=== PATIENT | female | born 1980 | race Caucasian/White ===

== ENCOUNTER 2020-07-11 07:05 | Outpatient (REF) | payer OTHER, SELFPAY ==
[2020-07-11 11:13] LABS: MANUAL DIFF FLAG NO
[2020-07-11 11:22] LABS: Basophils Percent Auto 0.6 % (0-2); Eosinophils Absolute Auto 0.2 X10*3/uL (0.0-0.4); Eosinophils Percent Auto 3.1 % (0-4); Hematocrit 40.1 % (37-47); Imm Gran Abs Auto 0.02 X10*3/uL (0.00-0.03); Imm Gran Pct Auto 0.3 % (0.0-0.4); Lymphocytes Absolute Auto 2.3 X10*3/uL (1.2-4.9); Lymphocytes Percent Auto 34.2 % (20-40); Mean Corpuscular HGB Conc 32.4 g/dl (31.0-35.0); Mean Corpuscular Hemoglobin 29.1 pg (27.0-33.0); Mean Corpuscular Volume 89.9 fL (80-98); Mean Platelet Volume 9.4 fL (9.4-12.3); Monocytes Absolute Auto 0.6 X10*3/uL (0.1-1.2); Monocytes Percent Auto 8.4 % (2-11); Neutrophils Absolute Auto 3.6 X10*3/uL (2.0-8.3); Neutrophils Percent Auto 53.4 % (45-73); Platelet Count 325 X10*3/uL (160-400); Red Blood Count 4.46 X10*6/uL (4.20-5.50); Red Cell Distribution Width 12.4 % (11.0-16.0); White Blood Count 6.8 X10*3/uL (4.8-10.8)
[2020-07-11 11:57] LABS: Alanine Aminotransferase 8 U/L (0-31); Albumin Level 4.1 g/dL (3.5-5.0); Alkaline Phosphatase 61 U/L (39-117); Anion Gap 11 (12-20); Aspartate Amino Transferase 13 U/L (5-31); Blood Urea Nitrogen 15 mg/dL (9-16); Calcium 8.5 mg/dL (8.4-10.2); Carbon Dioxide 28 mmol/L (22-29); Chloride 102 mmol/L (96-108); Cholesterol 151 mg/dL; Estimated Glomerular Filt Rate > 60; Glucose Fasting 83 mg/dL (60-99); HDL Cholesterol 60 mg/dL; LDL Cholesterol Calculated 77 mg/dl; Potassium 4.1 mmol/l (3.3-5.1); Sodium 137 mmol/L (135-145); Total Protein 6.5 g/dL (6.5-8.0); Triglycerides 70 mg/dL
[2020-07-11 12:15] LABS: TSH reflex Free T4 2.37 mIU/mL (0.32-4.0)
[2020-07-11 13:32] LABS: Bilirubin Total 0.4 mg/dL (0.0-1.0)
== END 2020-07-11 07:06 | disposition home or self-care (01) ==
LOC: HO.HMGCLDS 07:05
PROVIDERS: PCP Nurse Practitioner Family; Visit Provider Nurse Practitioner Family
DX: Z00.00 Encounter for general adult medical examination without abnormal findings (principal)
CPT/HCPCS: 36415; 80053; 80061; 84443; 85025

== ENCOUNTER 2020-07-16 15:25 | Outpatient (REF) | payer OTHER, SELFPAY ==
--- NOTE | 2020-07-16 15:31 | MM_ITS ---
EXAMINATION: MM SCREENING DIGITAL BREAST TOMOSYNTHESIS, BILATERAL CLINICAL INFORMATION: Screening. Asymptomatic. Prior [id number] mammography from [place] over 5 years ago currently unavailable. Age 39. The lifetime risk of breast cancer based on the Tyrer-Cuzick Model is 13%. COMPARISON: None. TECHNIQUE: Digital breast tomosynthesis is performed in both the craniocaudal and mediolateral oblique views along with computer-aided detection (CAD). Synthesized 2D images are generated from the tomosynthesis. FINDINGS: There are scattered areas of fibroglandular density (ACR BI-RADS breast composition Category b). Breast tissue composition borders on heterogeneously dense. There is no significant mass or architectural abnormality or abnormal calcifications. The axilla and skin contours are unremarkable. MM/MM tomosynthesis screening BI IMPRESSION: No mammographic evidence of malignancy. ASSESSMENT: BI-RADS 1: Negative RECOMMENDATION: Routine annual mammography screening. This patient's information was entered into a reminder system with a target due date for their next mammogram.
== END 2020-07-16 15:26 | disposition home or self-care (01) ==
LOC: HO.MAMMO 15:25
PROVIDERS: PCP Nurse Practitioner Family; Visit Provider Nurse Practitioner Family
DX: Z12.31 Encounter for screening mammogram for malignant neoplasm of breast (principal)
CPT/HCPCS: 77063; 77067

== ENCOUNTER 2020-07-19 | Outpatient (REF) | payer OTHER, SELFPAY ==
[2020-07-25 11:18] LABS: HPV mRNA E6/E7 rflx Not Detected (Not Detected)
== END 2020-07-19 00:01 | disposition home or self-care (01) ==
LOC: HO.LNP
PROVIDERS: Visit Provider Obstetrics & Gynecology
DX: Z01.419 Encounter for gynecological examination (general) (routine) without abnormal findings (principal); N94.6 Dysmenorrhea, unspecified
CPT/HCPCS: 87491; 87591; 87624; 87625; 88142

== ENCOUNTER → 2020-07-19 09:31 | Outpatient (BNVA) | payer OTHER, SELFPAY | PROVIDERS: PCP Nurse Practitioner Family; Visit Provider Obstetrics & Gynecology | DX: Z76.89 Persons encountering health services in other specified circumstances (principal) ==

== ENCOUNTER 2020-07-24 13:58 | Outpatient (REF) | payer OTHER, SELFPAY ==
--- NOTE | 2020-07-24 14:03 | US_ITS ---
EXAMINATION: US PELVIS COMPLETE CLINICAL INFORMATION: Dysmenorrhea. History of endometriosis. COMPARISON: None TECHNIQUE: Transabdominal and transvaginal ultrasound pelvis is performed. FINDINGS: On transabdominal ultrasound the uterus is anteverted measuring 7.1 cm in length, 5.0 cm in AP and 6.4 cm in transverse dimension. The endometrial thickness is 0.54 cm. Small nabothian cysts seen in the cervix. The left ovary measures 3.4 x 2.7 x 2.7 cm and volume 13.3 mL. The right ovary has been removed. There is no adnexal mass seen. There is no free fluid in the cul-de-sac. US/US pelvic complete IMPRESSION: Unremarkable uterus. Small nabothian cysts in cervix. Unremarkable left ovary. Right ovary has been removed.
--- NOTE | 2020-07-24 14:03 | US_ITS ---
EXAMINATION: US PELVIS COMPLETE CLINICAL INFORMATION: Dysmenorrhea. History of endometriosis. COMPARISON: None TECHNIQUE: Transabdominal and transvaginal ultrasound pelvis is performed. FINDINGS: On transabdominal ultrasound the uterus is anteverted measuring 7.1 cm in length, 5.0 cm in AP and 6.4 cm in transverse dimension. The endometrial thickness is 0.54 cm. Small nabothian cysts seen in the cervix. The left ovary measures 3.4 x 2.7 x 2.7 cm and volume 13.3 mL. The right ovary has been removed. There is no adnexal mass seen. There is no free fluid in the cul-de-sac. US/US transvaginal IMPRESSION: Unremarkable uterus. Small nabothian cysts in cervix. Unremarkable left ovary. Right ovary has been removed.
== END 2020-07-24 13:59 | disposition home or self-care (01) ==
LOC: HO.HMGCX 13:58
PROVIDERS: PCP Nurse Practitioner Family; Visit Provider Nurse Practitioner Family
DX: N94.6 Dysmenorrhea, unspecified (principal)
CPT/HCPCS: 76830; 76856

== ENCOUNTER 2020-08-08 15:26 | Outpatient (REF) | payer OTHER, SELFPAY | END 2020-08-08 15:27 | disposition home or self-care (01) | LOC: HO.LAB 15:26 | PROVIDERS: Visit Provider Nurse Practitioner Family | DX: J06.9 Acute upper respiratory infection, unspecified (principal); Z20.822 Contact with and (suspected) exposure to COVID-19 | CPT/HCPCS: 36415; U0003 ==

== ENCOUNTER → 2020-08-14 12:34 | Outpatient (BNVA) | payer OTHER, SELFPAY | PROVIDERS: PCP Nurse Practitioner Family; Visit Provider Obstetrics & Gynecology | DX: N94.6 Dysmenorrhea, unspecified (principal) | CPT/HCPCS: Q3014 ==

== ENCOUNTER 2020-08-15 16:15 | Outpatient (REF) | payer OTHER, SELFPAY | END 2020-08-15 16:16 | disposition home or self-care (01) | LOC: HO.LAB 16:15 | PROVIDERS: Visit Provider Nurse Practitioner Family | DX: R06.02 Shortness of breath (principal); Z20.822 Contact with and (suspected) exposure to COVID-19 | CPT/HCPCS: 36415; U0003 ==

== ENCOUNTER 2021-01-10 16:45 | Outpatient (REF) | payer OTHER, SELFPAY | END 2021-01-10 16:46 | disposition home or self-care (01) | LOC: HO.LNP 16:45 | PROVIDERS: Visit Provider Hospitalist | DX: R06.02 Shortness of breath (principal); Z20.822 Contact with and (suspected) exposure to COVID-19 | CPT/HCPCS: U0003; U0005 ==

== ENCOUNTER 2021-01-20 08:40 | Outpatient (REF) | payer OTHER, SELFPAY ==
[2021-01-20 10:06] LABS: Hematocrit 37.6 % (37-47); Hemoglobin 12.4 g/dl (12.0-16.0); Mean Corpuscular Hemoglobin 28.6 pg (27.0-33.0); Mean Corpuscular Volume 86.6 fL (80-98); Mean Platelet Volume 9.1 fL (9.4-12.3); Platelet Count 300 X10*3/uL (160-400); Red Blood Count 4.34 X10*6/uL (4.20-5.50); Red Cell Distribution Width 12.1 % (11.0-16.0); White Blood Count 6.3 X10*3/uL (4.8-10.8)
[2021-01-20 10:47] LABS: HCG Quantitative < 2 mIU/mL; TSH reflex Free T4 1.52 uIU/mL (0.32-4.0)
[2021-01-21 03:43] LABS: CT PCR NOT DETECTED (Not Detect.); NG PCR NOT DETECTED (Not Detect.)
== END 2021-01-20 08:41 | disposition home or self-care (01) ==
LOC: HO.LAB 08:40
PROVIDERS: PCP Nurse Practitioner Family; Visit Provider Obstetrics & Gynecology
DX: Z11.3 Encounter for screening for infections with a predominantly sexual mode of transmission (principal); R10.2 Pelvic and perineal pain; N92.0 Excessive and frequent menstruation with regular cycle; N93.9 Abnormal uterine and vaginal bleeding, unspecified
CPT/HCPCS: 36415; 84443; 84702; 85027; 87491; 87591; 99212

== ENCOUNTER 2021-02-04 08:33 | Outpatient (REF) | payer BC, SELFPAY | END 2021-02-04 08:34 | disposition home or self-care (01) | LOC: HO.LAB 08:33 | PROVIDERS: PCP Nurse Practitioner Family; Visit Provider Obstetrics & Gynecology | DX: N92.0 Excessive and frequent menstruation with regular cycle (principal) | CPT/HCPCS: 58100; 88305 ==

== ENCOUNTER 2021-02-11 11:07 | Outpatient (REF) | payer BC, SELFPAY | END 2021-02-11 11:08 | disposition home or self-care (01) | LOC: HO.US 11:07 | PROVIDERS: Visit Provider Obstetrics & Gynecology | DX: Z13.89 Encounter for screening for other disorder (principal) ==

== ENCOUNTER 2021-02-18 15:27 | Outpatient (REF) | payer BC, SELFPAY ==
--- NOTE | ~2021-02-18 | US_ITS ---
EXAMINATION: US PELVIS CLINICAL INFORMATION: Abnormal uterine and vaginal bleeding COMPARISON: Ultrasound pelvis 07/24/2020 TECHNIQUE: Both transabdominal and endovaginal scanning were performed. FINDINGS: An anteverted uterus is present which measures 7.1 x 5.0 x 6.4 cm. No uterine masses are seen. The endometrium measures 0.5 cm and appears normal. Nabothian cysts are present in the cervix. The right ovary is not seen with a history of removal. The left ovary is identified measuring 3.4 x 2.7 x 2.7 cm for a volume of 13.3 mL and appears normal. Some small follicular cysts are present. US/US pelvic and transvaginal IMPRESSION: A cause for the patient's abnormal uterine bleeding is not found. Incidental note made of nabothian cyst in the cervix and some small follicular cysts in the ovary.
== END 2021-02-18 15:28 | disposition home or self-care (01) ==
LOC: HO.US 15:27
PROVIDERS: Visit Provider Obstetrics & Gynecology
DX: N93.9 Abnormal uterine and vaginal bleeding, unspecified (principal)
CPT/HCPCS: 76830; 76856

== ENCOUNTER → 2021-02-26 15:59 | Outpatient (BNVA) | payer BC, SELFPAY | PROVIDERS: PCP Nurse Practitioner Family; Visit Provider Obstetrics & Gynecology ==

== ENCOUNTER 2021-04-04 14:49 | Outpatient (REF) | payer BC, SELFPAY ==
--- NOTE | ~2021-04-04 | XR_ITS ---
EXAMINATION: XR FOOT, LEFT CLINICAL INFORMATION: Left foot pain COMPARISON: None TECHNIQUE: AP, lateral, and oblique views of the left foot. FINDINGS: There is a nondisplaced intra-articular fracture seen about the base of the fourth proximal phalanx. There is associated soft tissue swelling. No dislocation is seen. Joint spaces are maintained. XR/XR foot LT min 3V IMPRESSION: Intra-articular fracture base fourth proximal phalanx without significant displacement.
== END 2021-04-04 14:50 | disposition home or self-care (01) ==
LOC: HO.HMGCX 14:49
PROVIDERS: PCP Nurse Practitioner Family; Visit Provider Hospitalist
DX: Z13.89 Encounter for screening for other disorder (principal)
CPT/HCPCS: 73630

== ENCOUNTER 2021-05-13 11:11 | Outpatient (REF) | payer BC, SELFPAY | END 2021-05-13 11:12 | disposition home or self-care (01) | LOC: HO.HMGCLDS 11:11 | PROVIDERS: PCP Nurse Practitioner Family; Visit Provider Internal Medicine | DX: Z20.822 Contact with and (suspected) exposure to COVID-19 (principal) | CPT/HCPCS: C9803; U0003; U0005 ==

== ENCOUNTER 2021-10-23 07:55 | Outpatient (REF) | payer OTHER, SELFPAY ==
[2021-10-25 17:17] LABS: HPV mRNA E6/E7 rflx Not Detected (Not Detected)
== END 2021-10-23 07:56 | disposition home or self-care (01) ==
LOC: HO.LAB 07:55
PROVIDERS: Visit Provider Obstetrics & Gynecology
DX: Z01.419 Encounter for gynecological examination (general) (routine) without abnormal findings (principal); Z11.51 Encounter for screening for human papillomavirus (HPV)
CPT/HCPCS: 87624; 88142

== ENCOUNTER 2021-11-20 07:34 | Outpatient (REF) | payer OTHER, SELFPAY ==
--- NOTE | ~2021-11-20 | MM_ITS ---
EXAMINATION: MM SCREENING DIGITAL BREAST TOMOSYNTHESIS, BILATERAL CLINICAL INFORMATION: Screening. Asymptomatic. The lifetime risk of breast cancer based on the Tyrer-Cuzick Model is 16.1%. COMPARISON: Mammography: 07/16/2020 TECHNIQUE: Digital breast tomosynthesis is performed in both the craniocaudal and mediolateral oblique views along with computer-aided detection (CAD). Synthesized 2-D images are generated from the tomosynthesis. FINDINGS: The breasts are heterogeneously dense, which may obscure small masses (ACR BI-RADS breast composition Category c). On left breast craniocaudal view about the anterior medial aspect, there is a 7 x 6 mm circumscribed density without definite correlate on mediolateral oblique projection. Spot compression view is recommended. Within the right breast about the inferior aspect approximately 5 cm from the nipple, there is a circumscribed somewhat lobular density measuring 7 x 4 mm in size for which spot compression film is recommended. If lesions are persistent, then ultrasound could be performed at that time. MM/MM tomosynthesis screening BI IMPRESSION: Bilateral breast densities for further evaluation, as described. ASSESSMENT: BI-RADS 0: Incomplete - Need Additional Imaging Evaluation. RECOMMENDATION: 1. Additional views of the bilateral breasts. 2. Targeted ultrasound if warranted after review of the additional views. 3. Radiology department staff will contact the patient for additional imaging.
== END 2021-11-20 07:35 | disposition home or self-care (01) ==
LOC: HO.MAMMO 07:34
PROVIDERS: Visit Provider Obstetrics & Gynecology
DX: Z12.31 Encounter for screening mammogram for malignant neoplasm of breast (principal)
CPT/HCPCS: 77063; 77067

== ENCOUNTER 2021-11-25 08:23 | Outpatient (REF) | payer OTHER, SELFPAY ==
--- NOTE | ~2021-11-25 | MM_ITS ---
EXAMINATION: MM DIAGNOSTIC DIGITAL BREAST TOMOSYNTHESIS, BILATERAL US DIAGNOSTIC ULTRASOUND BREAST, RIGHT CLINICAL INFORMATION: Recall from screening for question of asymmetric density anterior left breast on CC view and circumscribed focal asymmetric density mid inferior right breast. COMPARISON: Mammography: 11/20/2021, 07/16/2020 TECHNIQUE: Digital breast tomosynthesis is performed. 2D images are generated from the tomosynthesis. The following views are obtained: Left: Spot CC, rolled CC x2; right: Spot CC, spot MLO. Ultrasound right breast is targeted to the inferior breast. Grayscale imaging and color Doppler are performed without and with harmonics. FINDINGS: There are scattered areas of fibroglandular density (ACR BI-RADS breast composition Category b). Breast tissue composition borders on heterogeneously dense. There is a fibronodular parenchymal pattern similar to prior exams. Additional views left breast show no persistent asymmetric density or interval mass or architectural abnormality. Additional views right breast confirm smooth macrolobulated subcentimeter nodule mid 6:30 o'clock position. No spiculation or associated calcification. Ultrasound right breast demonstrates 2 adjacent cysts 7:00 position 3 cm from nipple each approximately 0.5 cm. There is increased through-transmission of sound. No associated color flow or solid component. Results are discussed with the patient at time of visit. MM/MM tomosynthesis added view BI IMPRESSION: Left: -Additional views are unremarkable. No persistent asymmetric density. Right: -2 small cysts mid inferior right breast. ASSESSMENT: BI-RADS 2: Benign RECOMMENDATION: Routine annual mammography screening. This patient's information was entered into a reminder system with a target due date for their next mammogram.
== END 2021-11-25 08:24 | disposition home or self-care (01) ==
LOC: HO.MAMMO 08:23
PROVIDERS: Visit Provider Obstetrics & Gynecology
DX: R92.2 Inconclusive mammogram (principal)
CPT/HCPCS: 76642; 77062; 77066

== ENCOUNTER 2022-09-18 16:39 | Outpatient (REF) | payer OTHER, SELFPAY ==
[2022-09-18 17:34] LABS: Influenza A PCR NEGATIVE (Negative); Influenza B PCR NEGATIVE (Negative); Resp Syncy Virus RNA Qual PCR NEGATIVE (Negative); SARS COV2 PCR INHOUSE NEGATIVE (Negative)
== END 2022-09-18 16:40 | disposition home or self-care (01) ==
LOC: HO.LNP 16:39
PROVIDERS: Visit Provider Physician Assistant
DX: Z20.822 Contact with and (suspected) exposure to COVID-19 (principal); B34.9 Viral infection, unspecified
CPT/HCPCS: 0241U

== ENCOUNTER 2022-11-18 07:56 | Outpatient (REF) | payer OTHER, SELFPAY ==
[2022-11-18 15:53] LABS: CT PCR NOT DETECTED (Not Detect.); NG PCR NOT DETECTED (Not Detect.)
== END 2022-11-18 07:57 | disposition home or self-care (01) ==
LOC: HO.LNP 07:56
PROVIDERS: Visit Provider Obstetrics & Gynecology
DX: Z01.419 Encounter for gynecological examination (general) (routine) without abnormal findings (principal); N94.6 Dysmenorrhea, unspecified; Z20.2 Contact with and (suspected) exposure to infections with a predominantly sexual mode of transmission; Z32.02 Encounter for pregnancy test, result negative; Z30.430 Encounter for insertion of intrauterine contraceptive device
CPT/HCPCS: 0353U; 58300; 81025; J7298

== ENCOUNTER 2022-12-01 14:25 | Outpatient (REF) | payer OTHER, SELFPAY ==
--- NOTE | ~2022-12-01 | US_ITS ---
EXAMINATION: US PELVIS CLINICAL INFORMATION: Dysmenorrhea. COMPARISON: Ultrasound pelvis and transvaginal 02/18/2021. TECHNIQUE: Ultrasound of the pelvis is performed using both transabdominal and transvaginal transducers along with Doppler. Transvaginal imaging is performed due to inadequate visualization transabdominally. FINDINGS: UTERUS: The uterus is anteverted and measures 9.5 x 5.2 x 6.6 cm. The double wall endometrial thickness is 1.0 cm. There is an intrauterine IUD in correct position limiting evaluation of the endometrium. No visible fibroid. ADNEXA: The right ovary is not visualized. There is normal color flow to the adnexa. There is no ovarian torsion. There is no pelvic ascites or fluid collection. Right ovary is not visualized. Left ovary measures 4.9 x 3.3 x 4.5 cm and volume 38.2 mL. There is an echogenic complex cyst likely hemorrhagic. It measures 2.9 x 3.1 x 3.0 cm. There is a small amount of free fluid in the pelvis. US/US pelvic and transvaginal IMPRESSION: Complex cyst left ovary. The right ovary is not seen. There is an IUD in correct position within the endometrial canal. The IUD limits evaluation of endometrial thickness and endometrium.
== END 2022-12-01 14:26 | disposition home or self-care (01) ==
LOC: HO.HMGCX 14:25
PROVIDERS: PCP Nurse Practitioner Family; Visit Provider Obstetrics & Gynecology
DX: R10.2 Pelvic and perineal pain (principal); N83.299 Other ovarian cyst, unspecified side; N94.6 Dysmenorrhea, unspecified
CPT/HCPCS: 76830; 76856; 81025

== ENCOUNTER 2022-12-01 16:08 | Outpatient (REF) | payer OTHER, SELFPAY ==
[2022-12-01 18:35] LABS: CT PCR NOT DETECTED (Not Detect.); NG PCR NOT DETECTED (Not Detect.)
== END 2022-12-01 16:09 | disposition home or self-care (01) ==
LOC: HO.LNP 16:08
PROVIDERS: Visit Provider Obstetrics & Gynecology
DX: R10.2 Pelvic and perineal pain (principal)
CPT/HCPCS: 0353U

== ENCOUNTER → 2022-12-10 15:51 | Outpatient (BNVA) | payer OTHER, SELFPAY | PROVIDERS: PCP Nurse Practitioner Family; Visit Provider Obstetrics & Gynecology ==

== ENCOUNTER 2022-12-25 07:30 | Outpatient (REF) | payer OTHER, SELFPAY ==
--- NOTE | ~2022-12-25 | MM_ITS ---
EXAMINATION: MM SCREENING DIGITAL BREAST TOMOSYNTHESIS, BILATERAL CLINICAL INFORMATION: Screening. Asymptomatic. The lifetime risk of breast cancer based on the Tyrer-Cuzick Model is 19%. COMPARISON: Mammography: 11/25/2021, 11/20/2021, 07/16/2020 (new baseline); right breast ultrasound 11/25/2021 TECHNIQUE: Digital breast tomosynthesis is performed in both the craniocaudal and mediolateral oblique views along with computer-aided detection (CAD). Synthesized 2D images are generated from the tomosynthesis. FINDINGS: The breasts are heterogeneously dense, which may obscure small masses (ACR BI-RADS breast composition Category c). There is a fine fibronodular parenchymal pattern with scattered minor asymmetries similar to prior studies. No developing density or architectural abnormality. There are no significant masses, abnormal calcifications, or other abnormalities. The axilla and skin contours are unremarkable. No significant changes from prior exams. MM/MM tomosynthesis screening BI IMPRESSION: No mammographic evidence of malignancy. ASSESSMENT: BI-RADS 2: Benign RECOMMENDATION: Routine annual mammography screening. This patient's information was entered into a reminder system with a target due date for their next mammogram.
== END 2022-12-25 07:31 | disposition home or self-care (01) ==
LOC: HO.MAMMO 07:30
PROVIDERS: PCP Nurse Practitioner Family; Visit Provider Obstetrics & Gynecology
DX: Z12.31 Encounter for screening mammogram for malignant neoplasm of breast (principal)
CPT/HCPCS: 77063; 77067

== ENCOUNTER 2023-01-12 09:53 | Outpatient (REF) | payer OTHER, SELFPAY ==
[2023-01-12 11:26] LABS: MANUAL DIFF FLAG NO
[2023-01-12 11:33] LABS: Basophils Absolute Auto 0.1 X10*3/uL (0.0-0.2); Basophils Percent Auto 1.3 % (0-2); Eosinophils Absolute Auto 0.2 X10*3/uL (0.0-0.4); Eosinophils Percent Auto 3.8 % (0-4); Hematocrit 40.9 % (37.0-47.0); Hemoglobin 13.1 g/dl (12.0-16.0); Lymphocytes Absolute Auto 1.6 X10*3/uL (1.2-4.9); Lymphocytes Percent Auto 34.3 % (20-40); Mean Corpuscular Hemoglobin 28.2 pg (27.0-33.0); Mean Corpuscular Volume 88.1 fL (80.0-98.0); Mean Platelet Volume 9.2 fL (9.4-12.3); Monocytes Absolute Auto 0.4 X10*3/uL (0.1-1.2); Monocytes Percent Auto 8.3 % (2-11); Neutrophils Absolute Auto 2.5 x10*3/uL (2.0-8.3); Neutrophils Percent Auto 52.3 % (45-73); Platelet Count 347 X10*3/uL (160-400); Red Blood Count 4.64 X10*6/uL (4.20-5.50); Red Cell Distribution Width 12.4 % (11.0-16.0); White Blood Count 4.7 X10*3/uL (4.8-10.8)
[2023-01-12 11:54] LABS: Alanine Aminotransferase 6 U/L (0-31); Albumin Level 4.2 g/dL (3.5-5.0); Alkaline Phosphatase 49 U/L (39-117); Anion Gap 11 (12-20); Aspartate Amino Transferase 11 U/L (5-31); Bilirubin Total 0.5 mg/dL (0.0-1.0); Blood Urea Nitrogen 10 mg/dL (9-16); Calcium 9.1 mg/dL (8.4-10.2); Carbon Dioxide 27 mmol/L (22-29); Chloride 107 mmol/L (96-108); Cholesterol 156 mg/dL; Estimated Glomerular Filt Rate > 60; Glucose Fasting 80 mg/dL (60-99); HDL Cholesterol 58 mg/dL; LDL Cholesterol Calculated 84 mg/dl; Sodium 141 mmol/L (135-145); Total Protein 6.9 g/dL (6.5-8.0); Triglycerides 71 mg/dL
[2023-01-12 12:08] LABS: TSH reflex Free T4 1.27 uIU/mL (0.32-4.0)
== END 2023-01-12 09:54 | disposition home or self-care (01) ==
LOC: HO.HMGCLDS 09:53
PROVIDERS: PCP Nurse Practitioner Family; Visit Provider Nurse Practitioner Family
DX: Z00.00 Encounter for general adult medical examination without abnormal findings (principal); Z20.2 Contact with and (suspected) exposure to infections with a predominantly sexual mode of transmission
CPT/HCPCS: 36415; 80053; 80061; 84443; 85025

== ENCOUNTER 2023-02-11 09:38 | Outpatient (AMB) | payer OTHER, SELFPAY ==
--- NOTE | 2023-02-11 09:47 | A.OFFVIS_ITS ---
Intake Vital Signs 02/11/23 10:04 Height 5 ft 7 in Weight 186 lb 2 oz BMI 29.1 BP 119/66 Blood Pressure Location Lt brachial Position Sitting Pulse 56 Intake Visit Reasons: scalp lesion Intake Note: Patient is seen in office for evaluation and treatment of a scalp lesion. Patient c/o: cyst on the back of the left ear/scalp, onset for years, has increase in size, denies discharge, redness, swelling or other concerns Physical Education Aide Required: No Accompanied by: Self / Same As Patient Allergies codeine [CODEINE] Allergy (Unknown, Verified 02/11/23 09:48) HIVES ibuprofen Allergy (Unknown, Verified 02/11/23 09:48) Unknown Sulfa (Sulfonamide Antibiotics) [SULFA (SULFONAMIDE ANTIBIOTICS)] Allergy (Unknown, Verified 02/11/23 09:48) HIVES Medication List - Last Reconciled 02/11/23 by Gal Pa MD buspirone 10 mg PO TID clonazepam 0.5 mg PO DAILY PRN fluoxetine 40 mg PO DAILY loratadine (Claritin) 10 mg PO DAILY HPI HPI Comments 2 History of Present Illness Details 42-year-old female patient presenting for evaluation of a scalp lesion in the posterior right scalp. Lesion is been present for several years and has gradually increased in size. She denies any bleeding or discharge from the site. She denies a previous history of skin cancers but does have a strong family history of other types of cancer. She is requesting excision of this lesion. [facility] Medical History Anxiety Depression Endometriosis Screening for breast cancer Surgical History H/O LEEP History of cholecystectomy History of tubal ligation S/P anal fissurectomy S/P removal of right ovary Family History Maternal Aunt History of breast cancer Family/Other Ovarian cancer Sister Hodgkin lymphoma Social History Household Members: Family Housing: House Alcohol intake: current Alcohol intake frequency: holidays/special occasions only Patient Tobacco Use Status: Never used Tobacco e-Cigarette/Vaping Use: Never Used Second Hand Smoke Exposure: No Current occupational status: employed 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 occupational exposures/hazards: No Sexual orientation: Straight/Heterosexual Gender identity: Female Cognitive needs: No Hearing needs: No Vision needs: No Female Reproductive History Menstrual Age of Menarche: 10 Review of Systems Const All systems reviewed & are unremarkable except as noted in HPI and below Physical Exam Vital Signs: Last Vital Signs Pulse 56 02/11/23 10:04 BP 119/66 02/11/23 10:04 BMI result Body Mass Index 29.1 Const General: comfortable and no acute distress Nutritional Appearance: well nourished Orientation/consciousness: patient oriented x3 Limitations: no limitations HEENT Head images: 1. 6 mm brown lesion with symmetrical borders, crusted surface suggestive of a seborrheic keratosis. No ulceration or bleeding is identified. No palpable lymphadenopathy. Resp Other: Breathing comfortably on room air, no respiratory distress GI Inspection: Yes normal to inspection Skin Other: Scalp lesion as noted above Neuro General: patient oriented x3 Extrem General: Yes normal to inspection and Yes no clubbing, cyanosis or edema Assessment & Plan Assessment & Plan (1) Scalp lesion: Code(s): L98.9 - Disorder of the skin and subcutaneous tissue, unspecified (2) Family history of ovarian cancer: Code(s): Z80.41 - Family history of malignant neoplasm of ovary (3) Family history of cancer: Code(s): Z80.9 - Family history of malignant neoplasm, unspecified (4) Family hx of colon cancer: Code(s): Z80.0 - Family history of malignant neoplasm of digestive organs Plan 42-year-old female patient presenting with a gradually enlarging scalp lesion in the posterior right scalp. Lesion is approximately 6 mm in diameter and appears consistent with a seborrheic keratosis. We discussed the options of observation verses excision. As the lesion is increasing in size I recommended excision as a minor surgery under local anesthesia. After discussion of the procedure, risks, and alternatives, she consents to an excision of the posterior right sc alp lesion. Patient has a strong family history of ovarian and breast cancer and previously underwent genetic testing however the the specimen was discarded before it could be evaluated. She would be a candidate based on her family history for genetic testing. After discussion of the procedure risks and alternatives she consents to proceeding with testing. This will be performed at the time of her postoperative visit. Coding Level of Care Code New Pt Level 4 (67182) Diagnoses Scalp lesion L98.9 Family history of ovarian cancer Z80.41 Family history of cancer Z80.9 Family hx of colon cancer Z80.0
[2023-02-11 10:04] VITALS: BP 119/66; PULSE 56; BMI 29.1
== END 2023-02-11 10:05 | disposition home or self-care (01) ==
PROVIDERS: PCP Nurse Practitioner Family; Visit Provider Surgery
DX: L98.9 Disorder of the skin and subcutaneous tissue, unspecified (principal); Z80.41 Family history of malignant neoplasm of ovary; Z80.9 Family history of malignant neoplasm, unspecified; Z80.0 Family history of malignant neoplasm of digestive organs
CPT/HCPCS: 99204

== ENCOUNTER → 2023-02-11 09:38 | Outpatient (BNVA) | payer OTHER, SELFPAY | PROVIDERS: PCP Nurse Practitioner Family; Visit Provider Surgery ==

== ENCOUNTER 2023-02-16 09:17 | Outpatient (AMB) | payer OTHER, SELFPAY ==
--- NOTE | 2023-02-16 10:16 | MHC.OFFWIV ---
Intake Vital Signs 02/16/23 10:20 Height 5 ft 7 in BP 102/70 Blood Pressure Location Lt brachial Position Sitting Pulse 56 Pulse Source Pulse Oximeter Temp 97.4 F Temp Source Temporal Artery Scan Pulse Oximetry (%) 98 Oxygen Delivery Method Room Air Intake Visit Reasons: EP lip burning/swelling for1 month (lobby) Intake Note: Pt is here c/o having chapped and swollen lips for the last month. Pt states after she eats her lips get inflammed. Patient Tobacco Use Status: Never used Tobacco Allergies codeine [CODEINE] Allergy (Unknown, Verified 02/16/23 10:20) HIVES ibuprofen Allergy (Unknown, Verified 02/16/23 10:20) Unknown Sulfa (Sulfonamide Antibiotics) [SULFA (SULFONAMIDE ANTIBIOTICS)] Allergy (Unknown, Verified 02/16/23 10:20) HIVES Do you need a note to return to daycare/school/sports/work: No HPI EP lip burning/swelling for1 month (lobby) HPI Details Patient presents with pain dryness and rash on her lips x1 month. She can identify a trigger to this. She takes a daily allergy med she does have known food allergies. She has tried several [id number] chapsticks without relief including Aquaphor. She does have mild hive breakout on her face and neck as well. Denies dysphagia tongue or mouth tingling or lesions in her mouth. No cosmetic procedures or makeup recently. [facility] Medical History Anxiety Depression Endometriosis Screening for breast cancer Surgical History H/O LEEP History of cholecystectomy History of tubal ligation S/P anal fissurectomy S/P removal of right ovary Family History Maternal Aunt History of breast cancer Family/Other Ovarian cancer Sister Hodgkin lymphoma Social History Household Members: Family Housing: House Alcohol intake: current Alcohol intake frequency: holidays/special occasions only Patient Tobacco Use Status: Never used Tobacco e-Cigarette/Vaping Use: Never Used Second Hand Smoke Exposure: No Current occupational status: employed 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 occupational exposures/hazards: No Sexual orientation: Straight/Heterosexual Gender identity: Female Cognitive needs: No Hearing needs: No Vision needs: No Female Reproductive History Menstrual Age of Menarche: 10 Review of Systems Const Reports as per HPI and Reports no additional complaints ENT Reports no additional complaints and Reports as per HPI Resp Reports as per HPI and Reports no additional complaints Skin/Breast Denies lesions Physical Exam Vital Signs: Last Vital Signs Temp 97.4 F 02/16/23 10:20 Pulse 56 02/16/23 10:20 BP 102/70 02/16/23 10:20 Pulse Ox 98 02/16/23 10:20 Oxygen Delivery Method Room Air 02/16/23 10:20 Const General: cooperative, comfortable and no acute distress Orientation/consciousness: patient oriented x3 HEENT Face and sinus: No edema, No dry mucous membranes and Yes other (Scattered patches of redness on face and neck) Mouth: Normal oral and palatal mucosa present, lip normal (Mildly tapped without lesions, there is some redness extending above the to), tongue normal and oropharynx normal Resp Effort & Inspection: normal respiratory effort Auscultation: clear to auscultation bilaterally Cardio Rate: regular rate Rhythm: regular rhythm Heart sounds: S1 normal heart sound present and S2 normal heart sound present Neuro General: patient oriented x3 Assessment & Plan Assessment & Plan (1) Perioral dermatitis: Code(s): L71.0 - Perioral dermatitis Plan: Trial short course of OTC hydrocortisone ointment. Discontinue after 10 days if symptoms resolve or do not improve. Discontinue immediately if symptoms worsen. She already takes a daily allergy pill. Will set up dermatology referral. She may need future allergy referral as she has known allergies to foods already, may need additional testing. Orders: Referrals Dermatology Referral L71.0 - Perioral dermatitis Coding Level of Care Code Est Pt Level 3 (56830) Diagnoses Perioral dermatitis L71.0
[2023-02-16 10:20] VITALS: BP 102/70; PULSE 56; TEMP 36.3; O2SAT 98
== END 2023-02-16 10:54 | disposition home or self-care (01) ==
PROVIDERS: PCP Nurse Practitioner Family; Visit Provider Physician Assistant
DX: L71.0 Perioral dermatitis (principal)
CPT/HCPCS: 99213

== ENCOUNTER → 2023-02-19 12:50 | Outpatient (BNVA) | payer OTHER, SELFPAY | PROVIDERS: PCP Nurse Practitioner Family; Visit Provider Surgery ==

== ENCOUNTER 2023-02-24 14:24 | Outpatient (REF) | payer OTHER, SELFPAY ==
--- NOTE | ~2023-02-24 | US_ITS ---
EXAMINATION: US PELVIS CLINICAL INFORMATION: Follow-up ovarian cyst. COMPARISON: Previous pelvic ultrasound November 2022 TECHNIQUE: Ultrasound of the pelvis is performed using both transabdominal and transvaginal transducers along with Doppler. Transvaginal imaging is performed due to inadequate visualization transabdominally. FINDINGS: The uterus is anteverted and measures 9.3 x 4.7 x 5.6 cm in dimension. No focal uterine lesion is seen. There is an IUD in the uterus in satisfactory position. The endometrium does not appear thickened measuring 0.7 cm. There are nabothian cysts in the cervix. The right ovary is not seen and has reportedly been removed. The left ovary measures 3.9 x 2.5 x 3.3 cm. There is a 2.2 x 1.8 x 2.1 cm complex left ovarian cyst with septations and some internal echoes. This measured 2.9 x 3.1 x 3 cm on November 2022 exam and is slightly decreased in size. This also appears decreased in complexity/less echogenic and more cystic. There is no fluid in the pelvis. US/US pelvic and transvaginal IMPRESSION: Slight interval decrease in size in the complex left ovarian cyst.
== END 2023-02-24 14:25 | disposition home or self-care (01) ==
LOC: HO.HMGCX 14:24
PROVIDERS: PCP Nurse Practitioner Family; Visit Provider Obstetrics & Gynecology
DX: N83.299 Other ovarian cyst, unspecified side (principal)
CPT/HCPCS: 76830; 76856

== ENCOUNTER 2023-02-25 12:32 | Outpatient (REF) | payer OTHER, SELFPAY ==
[2023-02-25 12:43] VITALS: BP 122/73; PULSE 65; RESP 17; TEMP 36.6; O2SAT 99; BMI 29.0
--- NOTE | 2023-02-25 13:28 | W.PM.OPN ---
Operative Note Operative Note Date of Service: 02/25/23 Narrative: Preoperative diagnosis: Seborrheic keratosis posterior scalp right side Postoperative diagnosis: Same Procedure: Excision of seborrheic keratosis posterior scalp right side Surgeon: Gal Pa MD Instrument Processing Tech: None Anesthesia: Lidocaine 1% plain Indications for procedure: 42-year-old female patient presenting with a brown lesion of the posterior scalp which has gradually increased in size and occasionally bleeds. Patient is requested excision Operative findings: 1 cm lesion located in the posterior scalp with a brownish discoloration and a bumpy surface suggestive of a seborrheic keratosis Specimen: Skin lesion posterior scalp right Estimated blood loss: 2 mL Complications: None Procedure details: Patient was brought to the minor surgery suite and placed in a left lateral decubitus position. The site of surgery was confirmed by the patient behind the right ear on the scalp. After assuring informed consent the skin was prepped with Betadine and draped in a sterile fashion. Local anesthesia was infiltrated around the lesion an elliptical incision created with a scalpel. Incision was carried down into the subcutaneous tissue and around the complete skin lesion. This was passed off the table and sent to pathology for further examination. Hemostasis was assured using light pressure. Skin was then closed using interrupted 3-0 Prolene sutures. Bacitracin was then applied. The patient tolerated the procedure well. She was discharged to home in stable condition.
== END 2023-02-25 12:33 | disposition home or self-care (01) ==
LOC: HO.MS 12:32
PROVIDERS: PCP Nurse Practitioner Family; Visit Provider Surgery
PROC: (CPT 11421; principal; 2023-02-25 13:00)
DX: L82.1 Other seborrheic keratosis (principal)
CPT/HCPCS: 11421; 88304; 88305

== ENCOUNTER → 2023-02-25 12:32 | Outpatient (BNV) | payer OTHER, SELFPAY | PROVIDERS: PCP Nurse Practitioner Family; Visit Provider Surgery | DX: L82.1 Other seborrheic keratosis (principal) | CPT/HCPCS: 11421 ==

== ENCOUNTER 2023-03-03 10:23 | Outpatient (REF) | payer OTHER, SELFPAY ==
[2023-03-05 11:04] LABS: CA-125 14 U/mL (<35)
== END 2023-03-03 10:24 | disposition home or self-care (01) ==
LOC: HO.LAB 10:23
PROVIDERS: PCP Nurse Practitioner Family; Visit Provider Obstetrics & Gynecology
DX: N83.299 Other ovarian cyst, unspecified side (principal)
CPT/HCPCS: 36415; 86304

== ENCOUNTER 2023-03-03 10:23 | Outpatient (AMB) | payer OTHER, SELFPAY ==
--- NOTE | 2023-03-03 10:25 | A.OFFVIS_ITS ---
Intake Vital Signs 03/03/23 10:27 Height 5 ft 7 in Weight 184 lb BMI 28.8 BP 110/70 Intake Visit Reasons: Persistent ovarian cyst Intake Note: Ultrasound follow up Allergies codeine [CODEINE] Allergy (Unknown, Verified 03/03/23 10:27) HIVES ibuprofen Allergy (Unknown, Verified 03/03/23 10:27) Unknown Sulfa (Sulfonamide Antibiotics) [SULFA (SULFONAMIDE ANTIBIOTICS)] Allergy (Unknown, Verified 03/03/23 10:27) HIVES Is last menstrual period known: Yes Last menstrual period: 02/09/23 HPI HPI Comments History of Present Illness Details Presenting for follow-up regarding previously seen complex ovarian in 12/22. Ultrasound done in 02/21 showed the following: The uterus is anteverted and measures 9.3 x 4.7 x 5.6 cm in dimension. No focal uterine lesion is seen. There is an IUD in the uterus in satisfactory position. The endometrium does not appear thickened measuring 0.7 cm. There are nabothian cysts in the cervix. The right ovary is not seen and has reportedly been removed. The left ovary measures 3.9 x 2.5 x 3.3 cm. There is a 2.2 x 1.8 x 2.1 cm complex left ovarian cyst with septations and some internal echoes. This measured 2.9 x 3.1 x 3 cm on November 2022 exam and is slightly decreased in size. This also appears decreased in complexity/less echogenic and more cystic. There is no fluid in the pelvis. [facility] Medical History Anxiety Depression Endometriosis Screening for breast cancer Surgical History H/O LEEP History of cholecystectomy History of excision of lesion (02/25/23) History of tubal ligation S/P anal fissurectomy S/P removal of right ovary Family History Maternal Aunt History of breast cancer Family/Other Ovarian cancer Sister Hodgkin lymphoma Social History Household Members: Family Housing: House Alcohol intake: current Alcohol intake frequency: holidays/special occasions only Patient Tobacco Use Status: Never used Tobacco e-Cigarette/Vaping Use: Never Used Second Hand Smoke Exposure: No Current occupational status: employed 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 Discussed with the patient the Ultrasound findings, the main limitation of transvaginal ultrasonography alone as a diagnostic tool to distinguish benign from malignant masses relates to its lack of specificity and low positive predictive value for cancer. The differential diagnosis discussed with the patient includes the following but not limited to: benign and malignant gynecological and non-gynecological causes. Laboratory evaluation include serum tumor marker CA 125 . Discussed with the patient that CA 125 is a protein associated with epithelial ovarian malignancies, but also frequently expressed at lower levels by nonmalignant tissue. Elevation of CA 125 levels may occur in nonmalignant gynecologic conditions, and in non-gynecologic cancers, It is most useful in postmenopausal women and in identifying non mucinous epithelial cancer. Discussed with the patient options of treatment , in case CA 125 is not elevated, including laparoscopy ovarian cystectomy/oophorectomy vs. expectant management with repeat US in repeating pelvic US in 6 weeks . If the ovarian complex cyst is persistent larger and / or more complex looking, or higher CA 125 will refer to gynecologic Oncology. All pros, cons, risks and benefits of each approach were discussed with the patient including but not limited to a delay in the diagnosis and treatment of ovarian cancer affecting the prognosis; The patient decided to go ahead with expectant management. Instructions given the patient to schedule a 6 week follow-up ultrasound appointment. All questions were answered & the patient verbalized understanding and agreed with the plan. Orders: Orders CA-125 Today N83.299 - Other ovarian cyst, unspecified side US pelvic and transvaginal 6 Weeks N83.299 - Other ovarian cyst, unspecified side Coding Level of Care Code Est Pt Level 3 (11453) Diagnoses Complex ovarian cyst N83.299
[2023-03-03 10:27] VITALS: BP 110/70; BMI 28.8
== END 2023-03-03 10:55 | disposition home or self-care (01) ==
LOC: HO.HWS 10:23
PROVIDERS: PCP Nurse Practitioner Family; Visit Provider Obstetrics & Gynecology
DX: N83.299 Other ovarian cyst, unspecified side (principal)
CPT/HCPCS: 99213

== ENCOUNTER → 2023-03-09 12:48 | Outpatient (BNVA) | payer OTHER, SELFPAY | PROVIDERS: PCP Nurse Practitioner Family; Visit Provider Surgery ==

== ENCOUNTER 2023-03-16 13:34 | Outpatient (AMB) | payer OTHER, SELFPAY ==
--- NOTE | 2023-03-16 13:51 | AM.OFFWIN_ITS ---
Intake Vital Signs 03/16/23 13:55 Weight 188 lb BP 110/70 Blood Pressure Location Lt brachial Position Sitting Pulse 60 Pulse Source Pulse Oximeter Pulse Oximetry (%) 99 Oxygen Delivery Method Room Air Intake Visit Reasons: EP back pain due to Sciatic/LT Intake Note: Patient here because about 6 months ago her sciatica came back on left side, but now it has worsened where she is having difficulty walking, sitting and bending. Patient Tobacco Use Status: Never used Tobacco Allergies codeine [CODEINE] Allergy (Unknown, Verified 03/16/23 13:54) HIVES ibuprofen Allergy (Unknown, Verified 03/16/23 13:54) Unknown Sulfa (Sulfonamide Antibiotics) [SULFA (SULFONAMIDE ANTIBIOTICS)] Allergy (Unknown, Verified 03/16/23 13:54) HIVES Do you need a note to return to daycare/school/sports/work: Yes HPI EP back pain due to Sciatic/LT HPI Details 42-year-old female patient presents today for worsening lower back pain. She has had lower back pain on and off for many years, and had imaging and chiropractic treatment previously while living in [place]. About 6 months ago, she noticed her lower back pain radiating to buttocks left greater than right recurred, and has intensified significantly over the last 5 days. No significant inciting event to recurrence. Prior MRI in 2018 showed facet arthropathy, left L4/5 and left L5/S1 disc herniations. She reports that her pain is severe, and has been impacting all activity, sleep, walking. Pain is worse with any bending. Pain radiates down her buttocks, and occasionally lower down legs left greater than right. Denies any numbness or weakness of lower extremities. Denies any saddle anesthesia, fever or chills. [facility] Medical History Anxiety Depression Endometriosis Screening for breast cancer Surgical History H/O LEEP History of cholecystectomy History of excision of lesion (02/25/23) History of tubal ligation S/P anal fissurectomy S/P removal of right ovary Family History Maternal Aunt History of breast cancer Family/Other Ovarian cancer Sister Hodgkin lymphoma Social History Household Members: Family Housing: House Alcohol intake: current Alcohol intake frequency: holidays/special occasions only Patient Tobacco Use Status: Never used Tobacco e-Cigarette/Vaping Use: Never Used Second Hand Smoke Exposure: No Current occupational status: employed 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 occupational exposures/hazards: No Sexual orientation: Straight/Heterosexual Gender identity: Female Cognitive needs: No Hearing needs: No Vision needs: No Female Reproductive History Menstrual Age of Menarche: 10 Review of Systems Const All systems reviewed & are unremarkable except as noted in HPI and below Physical Exam Vital Signs: Last Vital Signs Pulse 60 03/16/23 13:55 BP 110/70 03/16/23 13:55 Pulse Ox 99 03/16/23 13:55 Oxygen Delivery Method Room Air 03/16/23 13:55 Const General: cooperative and healthy appearing (uncomfortable due to pain) Nutritional Appearance: average body habitus Resp Effort & Inspection: normal respiratory effort and able to speak in complete sentences Back/Spine/Pelvis Cervical Spine: normal cervical lordosis and cervical ROM normal Thoracic/Lumbar Spine: thoracic and lumbar spine normal to inspection, straight leg raise negative bilaterally, paraspinal muscle tenderness on the left greater than right, thoraco-lumbar ROM limited (flex/ex/lat felx b/l) and thoraco-lumbar spasm on the left greater than right Sacroiliac joints: bilaterally (L>R) tender to palpation Skin General skin exam: no rashes or lesions noted Neuro General: Normal light touch and pain sensation Extrem General: Yes capillary refill normal and Yes no clubbing, cyanosis or edema Psych Appearance: grossly normal Mental Status: mental status grossly normal Speech and movement: Normal speech and movement present Assessment & Plan Assessment & Plan (1) Low back pain radiating to lower extremity: Code(s): M54.50 - Low back pain, unspecified; M79.606 - Pain in leg, unspecified Plan: 42 year old patient with acute on chronic lower back pain. Prior MRI in 2018 (patient had results on her phone from [place] office) had concerning findings for facet arthroses and left sided disc herniations at L4/5 and L5/S1. Her pain has been worsening and making all activity painful. XR obtained today shows no acute compression fracture. Slight retrolisthesis L5-S1 with slight disc space narrowing L4-S1. Lower lumbar facet arthrosis. She cannot take prednisone or NSAIDs due to an allergy. I am going to start her on a short course of muscle relaxers and pain medication. We reviewed indications, use, possible risks/side effects of medication. I would like her to consider course of PT and/or chiropractic treatment if this flare up does not resolve with time and conservative treatment. She can continue to use heating pad, Tylenol, and do some gentle stretching at home. It may also be mullins for her to establish care with a enrichment specialist, perhaps [facility] [facility] as she may at some point need additional imaging and perhaps interventional treatment if those prior disc herniations have in fact worsened. I sent a message to her PCP to consider referral. If she does not improve of if symptoms worsen she should return to clinic or f/u with PCP. She verbalizes understanding and agrees to plan. (2) Lumbar paraspinal muscle spasm: Code(s): M62.830 - Muscle spasm of back Orders: Orders XR lumbar spine 2-3V 03/16/23 M54.50 - Low back pain, unspecified, M79.606 - Pain in leg, unspecified Medications: New cyclobenzaprine 10 mg PO BID 7 days PRN 14 tabs 0RF muscle spasm M62.830 - Muscle spasm of back oxycodone Partial Fill upon patient request. Monitor for hives reaction as discussed. 5 mg PO Q8H 4 days PRN 12 tabs 0RF pain M54.50 - Low back pain, unspecified, M79.606 - Pain in leg, unspecified Coding Level of Care Code Est Pt Level 3 (86938) Diagnoses Low back pain radiating to lower extremity M54.50; M79.606 Lumbar paraspinal muscle spasm M62.830
[2023-03-16 13:55] VITALS: BP 110/70; PULSE 60; O2SAT 99
== END 2023-03-16 14:48 | disposition home or self-care (01) ==
PROVIDERS: PCP Nurse Practitioner Family; Visit Provider Nurse Practitioner Family
DX: M54.50 Low back pain, unspecified (principal); M79.606 Pain in leg, unspecified; M62.830 Muscle spasm of back
CPT/HCPCS: 99213

== ENCOUNTER 2023-03-16 14:38 | Outpatient (REF) | payer OTHER, SELFPAY ==
--- NOTE | ~2023-03-16 | XR_ITS ---
EXAMINATION: XR LUMBOSACRAL SPINE CLINICAL INFORMATION: Low back pain, unspecified COMPARISON: None available. TECHNIQUE: Three views of the lumbosacral spine. FINDINGS: There is a slight to mild lumbar levoscoliosis. IUD is in position. There are postoperative changes in the right upper quadrant. No acute lumbar compression fractures seen. Slight retrolisthesis noted L5-S1. There is slight disc space narrowing observed L4-S1. Lower lumbar facet arthrosis noted. XR/XR lumbar spine 2-3V IMPRESSION: 1. No acute compression fracture. Slight retrolisthesis L5-S1 with slight disc space narrowing L4-S1. 2. Lower lumbar facet arthrosis.
== END 2023-03-16 14:39 | disposition home or self-care (01) ==
LOC: HO.HMGCX 14:38
PROVIDERS: Visit Provider Nurse Practitioner Family
DX: M54.50 Low back pain, unspecified (principal)
CPT/HCPCS: 72100

== ENCOUNTER 2023-04-15 16:18 | Outpatient (REF) | payer OTHER, SELFPAY ==
--- NOTE | ~2023-04-15 | US_ITS ---
EXAMINATION: US PELVIS CLINICAL INFORMATION: Ovarian cysts, last menstrual period 04/07/2023. COMPARISON: 02/24/2023. TECHNIQUE: Ultrasound of the pelvis is performed using both transabdominal and transvaginal transducers along with Doppler. Transvaginal imaging is performed due to inadequate visualization transabdominally. Limited images of the liver demonstrate diffuse increase in echogenicity which is characteristic of primary hepatocellular disease, possibly due to hepatic steatosis and further limits visualization. FINDINGS: Uterus: The uterus is anteverted and measures 8.5 x 4.8 x 5.6 cm. No discrete fibroids are identified. IUD in place within the endometrial cavity. Multiple Nabothian cysts identified. The double wall endometrial thickness is 0.8 mm. The right ovary is not visualized and is reported to be surgically absent. Left ovary measures 3.3 x 3.0 x 2.6 cm, volume 13.5 mL. The left ovary is unremarkable in appearance. The previously identified 2.2 cm complex left ovarian cyst is not visualized. No significant free fluid. US/US pelvic and transvaginal IMPRESSION: 1. Previously identified complex left ovarian cyst is not visualized. Unremarkable left ovary. 2. IUD in place within the endometrial cavity. 3. No discrete fibroids. 4. Endometrial thickness is 0.8 cm. 5. Right ovary not visualized and is reported to be surgically absent.
== END 2023-04-15 16:19 | disposition home or self-care (01) ==
LOC: HO.US 16:18
PROVIDERS: PCP Nurse Practitioner Family; Visit Provider Obstetrics & Gynecology
DX: N83.299 Other ovarian cyst, unspecified side (principal)
CPT/HCPCS: 76830; 76856

== ENCOUNTER 2023-04-23 09:30 | Outpatient (AMB) | payer OTHER, SELFPAY ==
--- NOTE | 2023-04-23 09:49 | A.OFFVIS_ITS ---
Intake Vital Signs 04/23/23 09:52 Height 5 ft 7 in Weight 187 lb BMI 29.3 BP 132/60 Blood Pressure Location Lt brachial Position Sitting Intake Visit Reasons: Genetic Results *HERE* Intake Note: Patient is seen in office genetic testing results. Patient c/o: denies any changes here for results [employer] Worker Required: No Accompanied by: Self / Same As Patient Allergies codeine [CODEINE] Allergy (Unknown, Verified 04/23/23 09:51) HIVES ibuprofen Allergy (Unknown, Verified 04/23/23 09:51) Unknown Sulfa (Sulfonamide Antibiotics) [SULFA (SULFONAMIDE ANTIBIOTICS)] Allergy (Un known, Verified 04/23/23 09:51) HIVES Medication List - Last Reconciled 04/23/23 by Gal Pa MD buspirone 10 mg PO TID clonazepam 0.5 mg PO DAILY PRN cyclobenzaprine 10 mg PO BID PRN 7 days fluoxetine 40 mg PO DAILY loratadine (Claritin) 10 mg PO DAILY HPI HPI Comments History of Present Illness Details 42-year-old female patient with a strong family history of breast cancer returning to review genetic testing. Genetic testing revealed no clinically significant mutations identified. No variance of uncertain significance (VUS) were identified. The patient's breast cancer risk score of her remaining lifetime was calculated at 21.5 %. This is above the 20% threshold placing her at high risk for breast cancer. I reviewed the recommendations for high risk breast screening including monthly self examinations, twice yearly clinical breast examination, yearly mammogram alterna ting every 6 months with yearly breast MRI. A copy of the genetic testing results were provided to the patient. COUNT INCLUDES THE [facility] Medical History Anxiety Depression Endometriosis Screening for breast cancer Surgical History History of excision of lesion (02/25/23) History of cholecystectomy History of tubal ligation H/O LEEP S/P removal of right ovary S/P anal fissurectomy Family History Maternal Aunt History of breast cancer Family/Other Ovarian cancer Sister Hodgkin lymphoma Social History Household Members: Family Housing: House Alcohol intake: current Alcohol intake frequency: holidays/special occasions only Patient Tobacco Use Status: Never used Tobacco e-Cigarette/Vaping Use: Never Used Second Hand Smoke Exposure: No Current occupational status: employed 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 occupational 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/hazards: No Sexual orientation: Straight/Heterosexual Gender identity: Female Cognitive needs: No Hearing needs: No Vision needs: No Female Reproductive History Menstrual Age of Menarche: 10 Review of Systems Const All systems reviewed & are unremarkable except as noted in HPI and below Physical Exam Vital Signs: Last Vital Signs BP 132/60 04/23/23 09:52 BMI result Body Mass Index 29.3 Const General: comfortable and no acute distress Nutritional Appearance: well nourished Orientation/consciousness: patient oriented x3 Limitations: no limitations Chest Other: Exam deferred Resp Effort & Inspection: normal respiratory effort Skin General skin exam: no rashes or lesions noted Neuro General: patient oriented x3 Extrem General: Yes no clubbing, cyanosis or edema Assessment & Plan Assessment & Plan (1) At high risk for breast cancer: Code(s): Z91.89 - Other specified personal risk factors, not elsewhere classified (2) Family history of cancer: Code(s): Z80.9 - Family history of malignant neoplasm, unspecified Plan 42-year-old female patient with strong family history of breast cancer and colon cancer. Genetic testing revealed no clinically significant mutations. No variance of unknown significance were identified as well. Her breast cancer risk score was calculated at 21.5 %. We discussed high risk for breast cancer protocol. I will order a breast MRI. She will follow-up with Dr. Adams for her breast examinations. She is welcome to call for any concerns. We also discussed colon screening. She reports that she previously underwent a colonoscopy in [place]. A baseline colonoscopy is recommended between the age of 45 and 50. Coding Level of Care Code Est Pt Level 3 (23353) Diagnoses At high risk for breast cancer Z91.89 Family history of cancer Z80.9
[2023-04-23 09:52] VITALS: BP 132/60; BMI 29.3
== END 2023-04-23 09:56 | disposition home or self-care (01) ==
PROVIDERS: PCP Nurse Practitioner Family; Visit Provider Surgery
DX: Z80.3 Family history of malignant neoplasm of breast (principal); Z91.89 Other specified personal risk factors, not elsewhere classified
CPT/HCPCS: 99213

== ENCOUNTER → 2023-04-23 09:30 | Outpatient (BNVA) | payer OTHER, SELFPAY | PROVIDERS: PCP Nurse Practitioner Family; Visit Provider Surgery ==

== ENCOUNTER 2023-04-28 07:40 | Outpatient (AMB) | payer OTHER, SELFPAY ==
--- NOTE | 2023-04-28 07:41 | A.OFFVIS_ITS ---
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 Ultrasound done recently showed the following: IMPRESSION: 1. Previously identified complex left ov alverto cyst is not visualized. Unremarkable left ovary. 2. IUD in place within the endometrial c avity. 3. No discrete fibroids. 4. Endometrial thickness is 0.8 cm. 5. Right ovary not visualized and is rep orted to be surgically absent. Last co testing was in 2021 was negative. Last EMB was in 02/21 was negative for endometrial hyperplasia or malignancy. Mirena IUD was inserted in 11/22 in since then the patient has been having persistent severe dysmenorrhea and continuous vaginal spotting and is interested in surgical options of treatment [facility] Medical History Anxiety Depression Endometriosis Screening for breast cancer Surgical History History of excision of lesion (02/25/23) History of cholecystectomy History of tubal ligation H/O LEEP S/P removal of right ovary S/P anal fissurectomy Family History Maternal Aunt History of breast cancer Family/Other Ovarian cancer Sister Hodgkin lymphoma Social History Household Members: Family Housing: House Alcohol intake: current Alcohol intake frequency: holidays/special occasions only Patient Tobacco Use Status: Never used Tobacco e-Cigarette/Vaping Use: Never Used Second Hand Smoke Exposure: No Current occupational status: employed 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 occupational exposures/hazards: No Sexual orientation: Straight/Heterosexual Gender identity: Female Cognitive needs: No Hearing needs: No Vision needs: No Female Reproductive History Menstrual Age of Menarche: 10 Date of last menstrual period: 04/08/23 Review of Systems Const All systems reviewed & are unremarkable except as noted in HPI and below Reports as per HPI and Reports no additional complaints GI Reports no additional complaints Reports no additional complaints Physical Exam Vital Signs: Last Vital Signs BP 118/70 04/28/23 07:43 BMI result Body Mass Index 29.0 Assessment & Plan Assessment & Plan (1) Complex ovarian cyst: Code(s): N83.299 - Other ovarian cyst, unspecified side Plan: Discussed with the patient ultrasound findings showing the previously identified complex cyst has resolved. The patient was instructed to call if symptoms recur. All questions were answered the patient verbalized understanding. (2) Dysmenorrhea: Comment: possible endometriosis Family history of breast cancer No improvement with Mirena IUD Code(s): N94.6 - Dysmenorrhea, unspecified Plan: Offered the patient removal of Mirena IUD, the patient would like to keep it till next step in the management. Discussed with the patient options of treatment including atrial ablation versus hysterectomy with or without BSO, the patient is interested in hysterectomy. Discussed with the patient the different types of hysterectomies including, vaginal, laparoscopic assisted vaginal, robotic assisted laparoscopic,& abdominal +/- BSO. All pros, cons, r/b of each approach were discussed the patient including evidence that morbidity is less and recovery is shorter with minimally invasive approaches to hysterectomy. Discussed with the patient the lack of availability of the robot DaVinci robot and/or minimally invasive him specialist specialist at [facility]. Will refer the patient to a tertiary care center, [facility]. Instructed the patient to call our office back in case a referral appointment is not scheduled, missed or canceled so that we will assist on rescheduling another appointment, the patient verbalized understanding agreed with the plan. (3) Abnormal liver ultrasound: Code(s): R93.2 - Abnormal findings on diagnostic imaging of liver and biliary tract Plan: Discussed with the patient the following finding on ultrasound of the pelvis: Limited images of the liver demonstrate diffuse increase in echogenicity which is characteristic of primary hepatocellular disease, possibly due to hepatic steatosis and further limits visualization. Recommended patient to call her PCP regarding further management. All questions answered, the patient verbalized understanding Coding Level of Care Code Est Pt Level 3 (73559) Diagnoses Complex ovarian cyst N83.299 Dysmenorrhea N94.6 Abnormal liver ultrasound R93.2
[2023-04-28 07:43] VITALS: BP 118/70; BMI 29.0
== END 2023-04-28 08:39 | disposition home or self-care (01) ==
PROVIDERS: PCP Nurse Practitioner Family; Visit Provider Obstetrics & Gynecology
DX: N83.299 Other ovarian cyst, unspecified side (principal); N94.6 Dysmenorrhea, unspecified; R93.2 Abnormal findings on diagnostic imaging of liver and biliary tract
CPT/HCPCS: 99213

== ENCOUNTER → 2023-04-28 07:40 | Outpatient (BNVA) | payer OTHER, SELFPAY | PROVIDERS: PCP Nurse Practitioner Family; Visit Provider Obstetrics & Gynecology ==

== ENCOUNTER 2023-05-06 08:00 | Outpatient (RCR) | payer OTHER, SELFPAY ==
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
--- NOTE | 2023-06-03 11:32 | MHC.PT.DC ---
[facility] [place] [facility] [place] [facility] [place] Office [address] Adela Alcantara [address] [phone] F: [phone] F: [phone] F: [phone] F: [phone] Physical Therapy Discharge Report Diagnosis: This is a 42 yo female presenting to skilled PT with a script for spinal stenosis, lumbar region. Date of Surgery: Date of Evaluation: 04/08/23 Date of Discharge: 06/03/23 Treatments to Date: 9 Cancellations to Date: 0 No Shows to Date: 0 Discharge Status: Achieved Goals Improved Function Independent with HEP Recommend MD Follow-up Discharge Summary: 05/06: Today is the patient's last schedule appointment. She has an HEP to continue and is I in her program. She plans on attempting to get to the gym more. She is also awaiting MRI and hysterectomy. At this time she has made some improvements but continues to have changing symptoms. Plan is to DC chart after 30 days unless patient calls with concerns. DC to HEP. Electronically signed by: Bina Segovia PT Please sign and return to therapist. Thank you for your referral.
== END 2023-06-03 11:32 | disposition home or self-care (01) ==
LOC: HO.PTCHIC 08:00
PROVIDERS: PCP Nurse Practitioner Family; Visit Provider Nurse Practitioner Family
DX: M48.061 Spinal stenosis, lumbar region without neurogenic claudication (principal); M51.16 Intervertebral disc disorders with radiculopathy, lumbar region
CPT/HCPCS: 97110; 97140; 97162

== ENCOUNTER 2023-05-21 11:54 | Outpatient (REF) | payer OTHER, SELFPAY ==
--- NOTE | ~2023-05-21 | MR_ITS ---
EXAMINATION: MR BREAST WITHOUT AND WITH CONTRAST, BILATERAL CLINICAL INFORMATION: High-risk screening. COMPARISON: 12/25/2022, bilateral mammogram; 11/25/2021. Right breast ultrasound TECHNIQUE: Imaging was performed with a dedicated breast coil. Prior to the administration of contrast, bilateral axial T1 and bilateral axial T2 weighted sequences were obtained. After the uneventful administration of?8.5 mL of Gadavist, dynamic contrast-enhanced VIBRANT series through the breasts in the axial plane were performed. Subtracted images were performed and reviewed. A delayed sagittal sequence through both breasts was acquired. Additionally, CAD post-processing, including maximum intensity projections, 3-D reconstructions and kinetic analysis, were performed an independent workstation and reviewed by the interpreting radiologist is a portion of this exam. FINDINGS: The patient's extremely dense fibroglandular tissue demonstrates minimal background parenchymal enhancement bilaterally. LEFT BREAST: No suspicious masslike or non-masslike enhancement. No abnormal skin thickening or nipple retraction. No abnormal architectural distortion. There are a few, small nonenhancing cysts present, the largest cyst is in the 10:00 position, anterior depth measuring 0.7 cm. Review of kinetic images reveals no additional findings. RIGHT BREAST: No suspicious masslike or non-masslike enhancement. No abnormal skin thickening or nipple retraction. No abnormal architectural distortion. There are a few, small nonenhancing cysts present, the largest cyst is in the 2:00 position, 4 cm from the nipple measuring 0.5 cm in size. Review of kinetic images reveals no additional findings. There is no suspicious internal mammary chain or axillary adenopathy. Limited views of the chest and abdomen are unremarkable. MR/MR breast BI wo/w con IMPRESSION: No MR specific evidence of malignancy. Small, nonenhancing bilateral cysts are present. ASSESSMENT: LEFT BREAST: BI-RADS 2, benign. RIGHT BREAST: BI-RADS 2, benign. RECOMMENDATIONS: Bilateral mammogram in December 2023. Repeat MRI as clinically indicated.
[2023-05-21] MEDS: gadobutroL 10 ML VIAL IVPUSH (13:37)
== END 2023-05-21 11:55 | disposition home or self-care (01) ==
LOC: HO.MRI 11:54
PROVIDERS: PCP Nurse Practitioner Family; Visit Provider Surgery
DX: Z91.89 Other specified personal risk factors, not elsewhere classified (principal); Z80.9 Family history of malignant neoplasm, unspecified
CPT/HCPCS: 77049; A9585

== ENCOUNTER 2023-08-03 20:11 | Outpatient (REF) | payer OTHER, SELFPAY | END 2023-08-03 20:12 | disposition home or self-care (01) | LOC: HO.MRI 20:11 | PROVIDERS: PCP Nurse Practitioner Family; Visit Provider Nurse Practitioner Family | DX: M51.16 Intervertebral disc disorders with radiculopathy, lumbar region (principal); M48.061 Spinal stenosis, lumbar region without neurogenic claudication | CPT/HCPCS: 72148 ==

== ENCOUNTER 2024-01-25 09:57 | Outpatient (AMB) | payer OTHER, SELFPAY ==
--- NOTE | 2024-01-25 09:59 | A.OFFPC_ITS ---
Vital Signs 01/25/24 10:01 Height 5 ft 7 in Weight 183 lb BMI 28.7 BP 128/84 Blood Pressure Location Lt brachial Position Sitting Pulse 68 Pulse Source Pulse Oximeter Pulse Oximetry (%) 98 Oxygen Delivery Method Room Air Intake Visit Reasons: Physical exam Intake Note: pt is here for annual PE. Mammogram is due. Pap 10/24/21. Pt had hysterectomy 08/06/2023 Allergies codeine [CODEINE] Allergy (Unknown, Verified 01/25/24 10:19) HIVES ibuprofen Allergy (Unknown, Verified 01/25/24 10:19) Unknown Sulfa (Sulfonamide Antibiotics) [SULFA (SULFONAMIDE ANTIBIOTICS)] Allergy (Unknown, Verified 01/25/24 10:19) HIVES Medication List - Last Reconciled 01/25/24 by CECILIA Molina buspirone 10 mg PO DAILY clonazepam 0.5 mg PO DAILY PRN estradiol 1 patch transdermal Q3D fluoxetine 40 mg PO DAILY loratadine (Claritin) 10 mg PO DAILY Tobacco use date assessed: 01/25/24 Dental Screening Dental Screen Date: 01/25/24 Did you have a dental visit in the last 12 months?: Yes Did you have a dental problem in the last 6 months where you did not have access to dental care?: No Was dental information given to patient?: Patient has dentist HPI HPI Comments History of Present Illness Details Patient is a 43-year-old female in today for physical exam 1 meeting for the 1st time Patient is due for mammogram will refer. Patient is due for tetanus will administer in office. Patient has established OBN [facility]. Will draw fasting labs. Patient has past medical history significant for: Lumbar pain-currently seeing [facility]. Received intermittent steroid injections. Left hip uomsvvck-X-vmyyb or values findings support. Receives intermittent s teroid injections. Patient had hysterectomy 5 months prior to this visit through [facility]. Anxiety and wdqdckjamo-uiogodfhie-usbzdfm sees Psychiatry. Utilizing fluoxetine 40 mg p.o. daily, clonazepam 0.5 mg p.o. daily p.r.n., and who is prone 10 mg p.o. daily PFSH Medical History Anxiety Depression Endometriosis Screening for breast cancer Surgical History H/O: hysterectomy History of excision of lesion (02/25/23) History of cholecystectomy History of tubal ligation H/O LEEP S/P removal of right ovary S/P anal fissurectomy Family History Maternal Aunt History of breast cancer Family/Other Ovarian cancer Sister Hodgkin lymphoma Social History Household Members: Family Housing: House Alcohol intake: current Alcohol intake frequency: holidays/special occasions only Patient Tobacco Use Status: Former Tobacco user e-Cigarette/Vaping Use: Never Used Second Hand Smoke Exposure: No Current occupational status: employed 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 1. Little interest or pleasure in doing things: not at all 2. Feeling down, depressed, or hopeless: not at all 3. Trouble falling or staying asleep, or sleeping too much: not at all 4. Feeling tired or having little energy: not at all 5. Poor appetite or overeating: not at all 6. Feeling bad about yourself - or that you are a failure or have let yourself or your family down: not at all 7. Trouble concentrating on things, such as reading the newspaper or watching television: not at all 8. Moving or speaking so slowly that other people could have noticed. Or the opposite - being so fidgety or restless that you have been moving around a lot more than usual: not at all 9. Thoughts that you would be better off or of hurting yourself in some way: not at all Total score: 0 Depression Screening Interpretation: Negative Depression Screening Done: Yes 37197 - PHQ-9 Billing: Yes Source: Developed by Drs. Eric Browne, Tameka Felix, Jose Pagan and colleagues, with an educational martha from [employer] AUDIT C Alcohol Use Questionnaire (AUDIT-C) 1. How often do you have a drink containing alcohol?: 2-4 times a month 2. How many drinks containing alcohol do you have on a typical day when you are drinking?: 1 or 2 3. How often do you have six or more drinks on one occasion?: Never Total Score: 2 MONICA-7 AMB Questionnaire MONICA-7 Date MONICA - 7 assessed: 01/25/24 Feeling nervous, anxious, or on edge: 0 = Not at all Not being able to stop or control worryin = Not at all Worrying too much about different things: 0 = Not at all Trouble relaxin = Not at all Being so restless that it is hard to sit still: 0 = Not at all Becoming easily annoyed or irritable: 0 = Not at all Feeling afraid as if something awful might happen: 0 = Not at all Total MONICA-7 score (0-4 normal; 5-9 mild; 10-14 moderate; 15-21 severe): 0 Source: Developed by Drs. Eric Browne, Tameka Felix, Jose Pagan and colleagues, with an educational martha from [employer] MONICA-7 Assessment Billing MONICA-7 Assessment Tool: MONICA-7 Assessment 79535 Review of Systems Const All systems reviewed & are unremarkable except as noted in HPI and below Physical exam (Primary Care) Vital Signs: Last Vital Signs Pulse 68 01/25/24 10:01 BP 128/84 01/25/24 10:01 Pulse Ox 98 01/25/24 10:01 Oxygen Delivery Method Room Air 01/25/24 10:01 Care Plan Goal for BP management: Blood pressure is controlled. BMI result Body Mass Index 28.7 Tobacco/Smoking Status: Tobacco use Status Tobacco use date assessed 01/25/24 01/25/24 10:13 Patient Tobacco Use Status Former Tobacco user 01/25/24 10:13 e-Cigarette/Vaping Use Never Used 01/25/24 10:13 PHQ-9: PHQ-9 Score PHQ-9: Total score 0 01/25/24 10:17 Depression Screening Interpretation: Negative Advance Care Planning discussion: Completed/Scanned Date of discussion: 01/25/24 Forms completed: Health Care Proxy Time spent: 16-45 minutes Actual minutes spent: 17 Const Other: Appearance: Alert.? Oriented X3.? No acute distress.? Head: Normocephalic, atraumatic, no step-offs or deformities Eyes: Pupils equal, round and reactive to light.? ENT: Pharynx normal.?TM intact and pearly rob. Neck: Normal inspection.? Neck supple.? CVS: Normal heart rate and rhythm.? Pulses normal.? Respiratory: No respiratory distress.? Breath sounds normal.? Abdomen: Soft and nontender.? Skin: Skin warm and dry.? Normal skin color.? Normal skin turgor.? Extremities: No lower extremity edema.? No calf ttp. 5/5 strength to bilateral upper and lower extremities Back: No midline tenderness, no C-spine tenderness, full range of motion, no CVA tenderness bilaterally Neuro: Oriented X 3.? No motor deficit.? No sensory deficit. CN 2-12 intact Immunizations Boostrix Tdap 2.5 Lf unit-8 mcg-5 Lf/0.5 mL intramuscular syringe Performing Provider: CECILIA Molina Performing Location: [facility] Administered by: Deuce Mcgill CMA on 01/25/24 10:41 Dose Route Admin Location Dispensed Lot Number Expiration Date [employer] 0.5 mL IM Left Deltoid 0.5 mL [id number] 02/01/25 09952-201-02 EDUS VIS Given Date VIS Provided VIS Publication Date 01/25/24 Single Vaccine 21 Eligibility Eligibility Date Funding Source Not [facility] Eligible 01/25/24 Private Assessment and Plan Assessment & Plan (1) Physical exam: Comment: Patient is due for mammogram will refer. Patient is due for tetanus will administer in office. Patient has established OBGYN [facility]. Will draw fasting labs. Patient has past medical history significant for: Lumbar pain-currently seeing [facility]. Received intermittent steroid injections. Left hip cmrxlnra-S-zwbti or values findings support. Receives intermittent steroid injections. Patient had hysterectomy 5 months prior to this visit through [facility]. Anxiety and rrvltosdmk-unnzxbuogn-wzlgoij sees Psychiatry. Utilizing fluoxetine 40 mg p.o. daily, clonazepam 0.5 mg p.o. daily p.r.n., and who is prone 10 mg p.o. daily Code(s): Z00.00 - Encounter for general adult medical examination without abnormal findings Orders: Orders Vitamin D 25-OH (D2 and D3) Today Z13.21 - Encounter for screening for nutritional disorder Vitamin B6 Today Z13.21 - Encounter for screening for nutritional disorder UA CC w/rflx Micro + Cult Today Z13.89 - Encounter for screening for other disorder Lipid Panel Today Z13.220 - Encounter for screening for lipoid disorders Complete Blood Count Auto Diff Today Z13.0 - Encounter for screening for diseases of the blood and blood-forming organs and certain disorders involving the immune mechanism TDaP Immunization Today Z23 - Encounter for immunization Vitamin B12 Today Z13.21 - Encounter for screening for nutritional disorder TSH reflex Free T4 Today Z13.29 - Encounter for screening for other suspected endocrine disorder Comprehensive Met. Panel Today Z91.89 - Other specified personal risk factors, not elsewhere classified MM tomosynthesis screening BI Today Z12.31 - Encounter for screening mammogram for malignant neoplasm of breast Medications: New Boostrix Tdap (diphth,pertus(acell),tetanus) 0.5 mL IM ONCE 0.5 mL 0RF NS Z23 - Encounter for immunization Coding Level of Care Code Est Pt Prev Care 40-64y(18686) Diagnoses Physical exam Z00.00 Additional Codes MONICA-7 Assessment Billing - MONICA-7 Assessment Tool: MONICA-7 Assessment 41713 ([id number]) Vital Signs *Quality* - Advance Care Planning discussion: Completed/Scanned ([id number]) Vital Signs *Quality* - Time spent: 16-45 minutes ([id number]) Time Spent (min) 32
[2024-01-25 10:01] VITALS: BP 128/84; PULSE 68; O2SAT 98; BMI 28.7
== END 2024-01-25 10:34 | disposition home or self-care (01) ==
PROVIDERS: PCP Nurse Practitioner Family; Visit Provider Nurse Practitioner Primary Care
DX: Z00.00 Encounter for general adult medical examination without abnormal findings (principal); Z23 Encounter for immunization
CPT/HCPCS: 1123F; 90471; 90715; 99396; 99497

== ENCOUNTER 2024-02-04 08:46 | Outpatient (REF) | payer OTHER, SELFPAY | END 2024-02-04 08:47 | disposition home or self-care (01) | LOC: HO.MAMMO 08:46 | PROVIDERS: PCP Nurse Practitioner Family; Visit Provider Nurse Practitioner Family | DX: Z12.31 Encounter for screening mammogram for malignant neoplasm of breast (principal) | CPT/HCPCS: 77063; 77067 ==

== ENCOUNTER → 2024-02-04 09:00 | Outpatient (BNV) | payer OTHER, SELFPAY | PROVIDERS: PCP Nurse Practitioner Family; Visit Provider Radiology Diagnostic Radiology | DX: Z12.31 Encounter for screening mammogram for malignant neoplasm of breast (principal) | CPT/HCPCS: 77063; 77067 ==

== ENCOUNTER 2024-02-04 09:24 | Outpatient (REF) | payer OTHER, SELFPAY ==
[2024-02-04 10:16] LABS: Appearance Urine Clear; Color Urine Dark Yellow; Glucose Urine UA Negative (Negative); Leukocyte Esterase Urine Trace (Negative); Nitrite Urine Negative (Negative); Specific Gravity - Urine >= 1.030 (1.005-1.025); UMIC TRIGGER UACC YES; Urine Blood Small (1+) (Negative); Urine Ketones Trace mg/dL (Negative); Urine Protein Trace mg/dL (Neg-Trace)
[2024-02-04 10:18] LABS: MANUAL DIFF FLAG NO
[2024-02-04 10:20] LABS: Bacteria Urine 3+ (None Seen); Hyaline Casts Urine 0-2 /LPF (0-2); RBC Urine >20 /HPF (0-2); WBC Urine 0-5 /HPF (0-5)
[2024-02-04 10:30] LABS: Basophils Absolute Auto 0.1 X10*3/uL (0.0-0.2); Basophils Percent Auto 0.9 % (0-2); Eosinophils Absolute Auto 0.1 X10*3/uL (0.0-0.4); Eosinophils Percent Auto 2.2 % (0-4); Hematocrit 39.8 % (37.0-47.0); Hemoglobin 13.2 g/dl (12.0-16.0); Imm Gran Abs Auto 0.02 X10*3/uL (0.00-0.03); Imm Gran Pct Auto 0.3 % (0.0-0.4); Lymphocytes Absolute Auto 1.8 X10*3/uL (1.2-4.9); Lymphocytes Percent Auto 30.1 % (20-40); Mean Corpuscular HGB Conc 33.2 g/dl (31.0-35.0); Mean Corpuscular Hemoglobin 28.8 pg (27.0-33.0); Mean Corpuscular Volume 86.7 fL (80.0-98.0); Mean Platelet Volume 8.6 fL (9.4-12.3); Monocytes Absolute Auto 0.5 X10*3/uL (0.1-1.2); Monocytes Percent Auto 8.6 % (2-11); Neutrophils Absolute Auto 3.4 x10*3/uL (2.0-8.3); Neutrophils Percent Auto 57.9 % (45-73); Platelet Count 347 X10*3/uL (160-400); Red Blood Count 4.59 X10*6/uL (4.20-5.50); Red Cell Distribution Width 12.3 % (11.0-16.0); White Blood Count 5.8 X10*3/uL (4.8-10.8)
[2024-02-04 11:24] LABS: Alanine Aminotransferase 9 U/L (0-31); Albumin Level 4.2 g/dL (3.5-5.0); Alkaline Phosphatase 67 U/L (39-117); Anion Gap 10 (12-20); Aspartate Amino Transferase 13 U/L (5-31); Bilirubin Total 0.4 mg/dL (0.0-1.0); Blood Urea Nitrogen 14 mg/dL (9-16); Calcium 9.4 mg/dL (8.4-10.2); Carbon Dioxide 30 mmol/L (22-29); Chloride 102 mmol/L (96-108); Cholesterol 181 mg/dL (<200); Estimated Glomerular Filt Rate > 60; Glucose Random 87 mg/dL (60-115); HDL Cholesterol 79 mg/dL (>40); LDL Cholesterol Calculated 94 mg/dL (<100); Potassium 4.3 mmol/L (3.3-5.1); Sodium 138 mmol/L (135-145); Total Protein 6.8 g/dL (6.5-8.0); Triglycerides 40 mg/dL (<150)
[2024-02-04 11:31] LABS: TSH reflex Free T4 1.85 uIU/mL (0.32-4.0)
[2024-02-04 11:35] LABS: Vitamin B12 1332 pg/mL (200-900)
[2024-02-08 13:43] LABS: Vitamin D 25-OH, D2 <4 ng/mL; Vitamin D 25-OH, D3 39 ng/mL; Vitamin D 25-OH, Total 39 ng/mL (30-100)
[2024-02-09 13:39] LABS: Vitamin B6 32.7 ng/mL (2.1-21.7)
== END 2024-02-04 09:25 | disposition home or self-care (01) ==
LOC: HO.HMGCLDS 09:24
PROVIDERS: PCP Nurse Practitioner Family; Visit Provider Nurse Practitioner Primary Care
DX: Z13.21 Encounter for screening for nutritional disorder (principal); Z13.220 Encounter for screening for lipoid disorders; Z13.0 Encounter for screening for diseases of the blood and blood-forming organs and certain disorders involving the immune mechanism; Z13.29 Encounter for screening for other suspected endocrine disorder; Z91.89 Other specified personal risk factors, not elsewhere classified
CPT/HCPCS: 36415; 80053; 80061; 81001; 82306; 82607; 84207; 84443; 85025

== ENCOUNTER 2024-05-24 07:48 | Outpatient (AMB) | payer OTHER, SELFPAY ==
--- NOTE | 2024-05-24 07:29 | A.OFFPC_ITS ---
Intake Visit Reasons: discuss referral Allergies codeine [CODEINE] Allergy (Unknown, Verified 05/24/24 07:32) HIVES ibuprofen Allergy (Unknown, Verified 05/24/24 07:32) Unknown Sulfa (Sulfonamide Antibiotics) [SULFA (SULFONAMIDE ANTIBIOTICS)] Allergy (Unknown, Verified 05/24/24 07:32) HIVES Medication List - Last Reconciled 05/24/24 by ESTEFANIA Meeks clonazepam 0.5 mg PO DAILY PRN epinephrine (EpiPen 2-Orion) 0.3 mg (0.3 mL) IM Q4H PRN estradiol 1 patch transdermal Q3D fluoxetine 60 mg PO DAILY loratadine (Claritin) 10 mg PO DAILY trazodone 50 mg PO BEDTIME PRN Tobacco use date assessed: 01/25/24 Dental Screening Dental Screen Date: 01/25/24 HPI discuss referral HPI Details Pt c/o weight gain. She reports gaining 10lbs in the last 3 months. Pt has tried diet and exercise with no results. Will send wegovy. Pt does not have a hx of pancreatitis. Will also refer to endo for further weight management (in surance requested). Denies fever, chills, and dizziness. Recent meds adjusted by psych. Pt denies any SI or HI PFSH Medical History Lumbar facet joint syndrome Anxiety Depression Endometriosis Screening for breast cancer Surgical History H/O: hysterectomy History of excision of lesion (02/25/23) History of cholecystectomy History of tubal ligation H/O LEEP S/P removal of right ovary S/P anal fissurectomy Family History Maternal Aunt History of breast cancer Family/Other Ovarian cancer Sister Hodgkin lymphoma Social History Household Members: Family Housing: House Alcohol intake: current Alcohol intake frequency: holidays/special occasions only Patient Tobacco Use Status: Former Tobacco user e-Cigarette/Vaping Use: Never Used Second Hand Smoke Exposure: No Current occupational status: employed 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 How many drinks containing alcohol do you have on a typical day when you are drinking?: 1 or 2 3. How often do you have six or more drinks on one occasion?: Never Total Score: 0 MONICA-7 AMB Questionnaire MONICA-7 Date MONICA - 7 assessed: 01/25/24 Source: Developed by Drs. Eric Browne, Tameka Felix, Jose Pagan and colleagues, with an educational martha from [employer]. Review of Systems Const Reports as per HPI Physical exam (Primary Care) Tobacco/Smoking Status: Tobacco use Status Tobacco use date assessed 01/25/24 05/24/24 07:31 Patient Tobacco Use Status Former Tobacco user 05/24/24 07:31 e-Cigarette/Vaping Use Never Used 05/24/24 07:31 Const General: cooperative Orientation/consciousness: patient oriented x3 Neuro General: patient oriented x3 Psych Appearance: grossly normal Mental Status: mental status grossly normal Speech and movement: Clear speech present Affect: normal affect Attitude: cooperative Thought process: Normal thought process present Thought content: Normal thought content present Insight: Good insight present (Psych) Judgement: Good judgement present (Psych) Telehealth Telehealth Telehealth Platform: [facility] Location of provider rendering services: practice address Location of patient: address on file Patient Identification confirmed using: Name, : Yes Telehealth method: video Patient verbally consented to treatment: Yes Patient verbally consented to billing insurance company: Yes Patient informed of any privacy concerns related to visit: Yes Minutes spent on Phone/Video with Pt.: 10 Coding Level of Care Code Tele Est Pt Level 3 (48348) Diagnoses Encounter for weight management Z76.89 Depression F32.9 Assessment & Plan Assessment & Plan (1) Encounter for weight management: Code(s): Z76.89 - Persons encountering health services in other specified circumstances Category: Medical (2) Depression: Code(s): F32.9 - Major depressive disorder, single episode, unspecified Category: Medical Plan: seeing psych...recent med change (increased fluoxetine and added trazodone) Plan The patient agreed to the use of a director of medical review for this encounter. Scribed for CECILIA Lucia- by Nalini Rosado director of medical review, on 05/24/2024 at 07:30 EST. Orders: Referrals Endocrinology Referral Z76.89 - Persons encountering health services in other specified circumstances Medications: New semaglutide (weight loss) (Kori) administer weeks 1 through 4 of therapy 0.25 mg (0.5 mL) subcut QWEEK 2 mL 0RF
== END 2024-05-24 08:09 | disposition home or self-care (01) ==
LOC: HO.HMCC 07:48
PROVIDERS: PCP Nurse Practitioner Family; Visit Provider Nurse Practitioner Family
DX: Z76.89 Persons encountering health services in other specified circumstances (principal); F32.9 Major depressive disorder, single episode, unspecified

== ENCOUNTER → 2024-05-24 07:48 | Outpatient (BNVA) | payer OTHER, SELFPAY | PROVIDERS: PCP Nurse Practitioner Family; Visit Provider Nurse Practitioner Family | DX: Z76.89 Persons encountering health services in other specified circumstances (principal) ==

== ENCOUNTER 2024-05-30 15:49 | Outpatient (AMB) | payer OTHER, SELFPAY ==
--- NOTE | 2024-05-30 15:54 | A.OFFVIS_ITS ---
Vital Signs 05/30/24 15:59 Height 5 ft 7 in Weight 196 lb 10.437 oz BMI 30.8 BP 116/70 Blood Pressure Location Rt brachial Position Sitting Pulse 60 Pulse Source Pulse Oximeter Intake Visit Reasons: Obesity Intake Note: Patient internally referred by PCP for Obesity. Freight Flagman Required: No Accompanied by: Self / Same As Patient Allergies codeine [CODEINE] Allergy (Unknown, Verified 05/30/24 15:59) HIVES ibuprofen Allergy (Unknown, Verified 05/30/24 15:59) Unknown Sulfa (Sulfonamide Antibiotics) [SULFA (SULFONAMIDE ANTIBIOTICS)] Allergy (Unknown, Verified 05/30/24 15:59) HIVES Medication List - Last Reconciled 05/30/24 by Eric Rodriguez MD clonazepam 0.5 mg PO DAILY PRN epinephrine (EpiPen 2-Orion) 0.3 mg (0.3 mL) IM Q4H PRN estradiol 1 patch transdermal Q3D fluoxetine 60 mg PO DAILY loratadine (Claritin) 10 mg PO DAILY semaglutide (weight loss) (Wegovy) 0.25 mg (0.5 mL) subcut QWEEK trazodone 50 mg PO BEDTIME PRN HPI Comments Details: This is a 43-year-old white female sent to endocrinology for evaluation of obesity. Patient states weight gain has been . There has been a weight gain of 15 lbs over yr . Patient has not tried stuctured diets . Patient has not seen a middleware consultant . Patient has not tried weight loss medications was prescribed Wegovy by her primary care provider but was not approved . . There is history of thyroid disease in 20s but no symptoms of hypothyroidism. There is no history of diabetes. There is no family history of diabetes. No snoring at night. No sx of sleep apnea. [facility] Medical History (Updated 05/30/24 @ 15:58 by Eric Rodriguez MD) Obesity Lumbar facet joint syndrome Anxiety Depression Endometriosis Screening for breast cancer Surgical History H/O: hysterectomy History of excision of lesion (02/25/23) History of cholecystectomy History of tubal ligation H/O LEEP S/P removal of right ovary S/P anal fissurectomy Family History Maternal Aunt History of breast cancer Family/Other Ovarian cancer Sister Hodgkin lymphoma Social History Household Members: Family Housing: House Alcohol intake: current Alcohol intake frequency: holidays/special occasions only Patient Tobacco Use Status: Former Tobacco user e-Cigarette/Vaping Use: Never Used Second Hand Smoke Exposure: No Current occupational status: employed 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 Thyroid gland is normal size weighs by 15 g . Assessment & Plan Assessment & Plan (1) Obesity: Code(s): E66.9 - Obesity, unspecified Category: Medical Plan: This is a 43 year white female sent to endocrinology for evaluation of obesity.. There were no obvious secondary endocrine causes for the obesity. Patient appears to be clinically and biochemically euthyroid. Plan is to send the patient to a middleware consultant. We will talk to the patient about prescribing a G LP 1/GI P agonist. After careful discussion with the patient, we decided to prescribe Wegovy 0.25 mg Q weekly. I went over the side effects of Wegovy including but not limited to nausea, vomiting rare risk of pancreatitis. Orders: Referrals Nutrition/Dietitian Referral E66.9 - Obesity, unspecified Medications: New semaglutide (weight loss) (Wegovy) administer weeks 1 through 4 of therapy 0.25 mg (0.5 mL) subcut QWEEK 2 mL 3RF Discontinued semaglutide (weight loss) (Wegovy) administer weeks 1 through 4 of therapy Discontinued Reason: Doctor's Order 0.25 mg (0.5 mL) subcut QWEEK 2 mL 0RF Coding Level of Care Code New Pt Level 4 (29241) Diagnoses Obesity E66.9
[2024-05-30 15:59] VITALS: BP 116/70; PULSE 60; BMI 30.8
== END 2024-05-30 16:40 | disposition home or self-care (01) ==
LOC: HO.ENCR 15:50
PROVIDERS: PCP Nurse Practitioner Family; Visit Provider Internal Medicine Endocrinology, Diabetes & Metabolism
DX: E66.9 Obesity, unspecified (principal)
CPT/HCPCS: 99204

== ENCOUNTER → 2024-05-30 15:49 | Outpatient (BNVA) | payer OTHER, SELFPAY | PROVIDERS: PCP Nurse Practitioner Family; Visit Provider Internal Medicine Endocrinology, Diabetes & Metabolism ==

== ENCOUNTER 2024-07-24 07:21 | Outpatient (REF) | payer OTHER, SELFPAY ==
[2024-07-24 11:21] LABS: Appearance Urine Clear; Color Urine Yellow; Glucose Urine UA Negative (Negative); Leukocyte Esterase Urine Negative (Negative); Nitrite Urine Negative (Negative); Specific Gravity - Urine 1.025 (1.005-1.025); UMIC TRIGGER UA YES; Urine Blood Moderate (2+) (Negative); Urine Ketones Negative (Negative); Urine Protein Negative (Neg-Trace)
[2024-07-24 11:24] LABS: Bacteria Urine 1+ (None Seen); Hyaline Casts Urine 0-2 /LPF (0-2); WBC Urine 0-5 /HPF (0-5)
== END 2024-07-24 07:22 | disposition home or self-care (01) ==
LOC: HO.HMGCLDS 07:21
PROVIDERS: PCP Nurse Practitioner Family; Visit Provider Nurse Practitioner Family
DX: R30.0 Dysuria (principal)
CPT/HCPCS: 81001; 87086

== ENCOUNTER 2024-08-03 07:20 | Outpatient (REF) | payer OTHER, SELFPAY ==
[2024-08-03 10:06] LABS: Appearance Urine Turbid; Color Urine Dark Yellow; Glucose Urine UA Negative (Negative); Leukocyte Esterase Urine Negative (Negative); Nitrite Urine Negative (Negative); Specific Gravity - Urine >= 1.030 (1.005-1.025); UMIC TRIGGER UACC YES; Urine Blood Large (3+) (Negative); Urine Ketones Trace mg/dL (Negative); Urine Protein Trace mg/dL (Neg-Trace)
[2024-08-03 10:12] LABS: Bacteria Urine 3+ (None Seen); RBC Urine >20 /HPF (0-2); WBC Urine 0-5 /HPF (0-5)
== END 2024-08-03 07:21 | disposition home or self-care (01) ==
LOC: HO.HMGCLDS 07:20
PROVIDERS: PCP Nurse Practitioner Family; Visit Provider Nurse Practitioner Family
DX: R10.2 Pelvic and perineal pain (principal)
CPT/HCPCS: 81001; 81003; 87086; 88112

== ENCOUNTER 2024-09-12 12:52 | Outpatient (AMB) | payer OTHER, SELFPAY ==
--- NOTE | 2024-09-12 13:05 | MHC.OFFVIS ---
Intake Visit Reasons: Hematuria Intake Note: Patient is present for HEMATURIA Urology Medication:ESTRADIOL Antibiotic Allergy:SULFA Blood Thinner:NONE TODAY'S PVR: 0ML'S Adobe Block Maker Required: No Allergies codeine [CODEINE] Allergy (Unknown, Verified 09/12/24 13:06) HIVES ibuprofen Allergy (Unknown, Verified 09/12/24 13:06) Unknown Sulfa (Sulfonamide Antibiotics) [SULFA (SULFONAMIDE ANTIBIOTICS)] Allergy (Unknown, Verified 09/12/24 13:06) HIVES HPI Comments Details: Cande is a pleasant female. She is a patient of Dr. Zavala. She seen for the following urologic conditions - microscopic hematuria - recurrent UTI Three-month follow-up nurse-practitioner after CT scan Microscopic hematuria Longstanding Runs in her family 20 year smoking history 3 cigarettes per day equivalent to 3 year pack per day history No workplace exposure Prior evaluation age 21 with Urology in [place] Has upcoming CT scan Recurrent UTI Proximally 2 times per year Suggest vitamin-C 500 mg daily [facility] Medical History (Updated 08/03/24 @ 11:29 by Gal Valenzuela, [facility]-) Obesity Lumbar facet joint syndrome Anxiety Depression Endometriosis Screening for breast cancer Surgical History H/O: hysterectomy History of excision of lesion (02/25/23) History of cholecystectomy History of tubal ligation H/O LEEP S/P removal of right ovary S/P anal fissurectomy Family History Maternal Aunt History of breast cancer Family/Other Ovarian cancer Sister Hodgkin lymphoma Social History Household Members: Family Housing: House Alcohol intake: current Alcohol intake frequency: holidays/special occasions only Patient Tobacco Use Status: Former Tobacco user e-Cigarette/Vaping Use: Never Used Second Hand Smoke Exposure: No Current occupational status: employed 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 Current occupational exposures/hazards: No Sexual orientation: Straight/Heterosexual Gender identity: Female Cognitive needs: No Hearing needs: No Vision needs: No Female Reproductive History Menstrual Age of Menarche: 10 Review of Systems Const Denies chills and Denies fever(s) Card Reports no additional complaints and Denies syncope Resp Denies cough GI Denies abdominal pain and Denies heartburn Reports as per HPI and Denies change in libido Neuro Denies syncope Psych Denies change in libido Endo Denies change in libido Physical Exam Const General: cooperative, healthy appearing, comfortable and no acute distress Orientation/consciousness: patient oriented x3 HEENT Face and sinus: Yes normal facial exam Mouth: moist mucous membranes Neck Neck: Yes normal visual inspection, Yes full ROM and Yes trachea midline Chest Chest palpation & inspection: normal inspection of the chest Resp Effort & Inspection: normal respiratory effort, able to speak in complete sentences and no respiratory distress GI Inspection: Yes normal to inspection Back/Spine/Pelvis Cervical Spine: normal cervical lordosis Thoracic/Lumbar Spine: thoracic and lumbar spine normal to inspection Skin General skin exam: no rashes or lesions noted Neuro General: patient oriented x3, gait normal, tone normal and moves all extremities Extrem General: Yes normal to inspection and Yes capillary refill normal Office Procedures Post Void Residual Post Residual Void Post Void Residual (PVR): 0 [id number] Void Residual by ultrasound Results AMB Urinalysis, Automated UA Leukoctes 0 Arsen/uL Last Edit by DAO Baez on 09/12/24 13:14 UA Nitrite Negative Last Edit by DAO Baez on 09/12/24 13:14 UA Urobilinogen 3.5 mg/dL Last Edit by DAO Baez on 09/12/24 13:14 UA Protein 15 mg/dL Last Edit by DAO Baez on 09/12/24 13:14 UA pH 7.0 Last Edit by DAO Baez on 09/12/24 13:14 UA Blood 80 Ronny/uL Last Edit by ADO Baez on 09/12/24 13:14 UA Specific Dodge 1.010 Last Edit by DAO Baez on 09/12/24 13:14 UA Ketone Negative Last Edit by DAO Baez on 09/12/24 13:14 UA Bilirubin 0 mg/dL Last Edit by DAO Baez on 09/12/24 13:14 UA Glucose 0 mg/dL Last Edit by DAO Baez on 09/12/24 13:14 Results Reviewed Results Reviewed: Laboratory Last Values Urine pH (Auto) 7.0 09/12/24 13:14 Specific Dodge (Auto) 1.010 09/12/24 13:14 Urine Protein (Auto) 15 mg/dL 09/12/24 13:14 Glucose (UA)(Auto) 0 mg/dL 09/12/24 13:14 Urine Ketones (Auto) Negative 09/12/24 13:14 Urine Blood (Auto) 80 Ronny/uL 09/12/24 13:14 Urine Nitrite (Auto) Negative 09/12/24 13:14 Urine Bilirubin (Auto) 0 mg/dL 09/12/24 13:14 Urine Urobilinogen (Auto) 3.5 mg/dL 09/12/24 13:14 Leukocyte Esterase (Auto) 0 Arsen/uL 09/12/24 13:14 Assessment & Plan Assessment & Plan (1) Hematuria: Code(s): R31.9 - Hematuria, unspecified Category: Medical Plan Three-month follow-up Orders: Orders AMB Urinalysis Automated Today Z13.9 - Encounter for screening, unspecified Patient Instructions: This note is constructed using voice recognition software. While every effort has been made to ensure accuracy receiving manager errors may have been included. Imaging studies, laboratory and physical exam results were discussed and reviewed in detail. No major barriers to patient understanding were identified. An opportunity to ask questions regarding the treatment plan was provided. All questions were answered. The patient expressed understanding and agreement with the above treatment plan. The patient is aware they should contact our office by phone for worsening of their current condition or the appearance of new urologic symptoms. Compliance is encouraged with any medications and followup testing that is ordered. It is a privilege to participate in the urologic care of your patient. If you have any questions or concerns regarding treatment for the above conditions, or other urologic issues, please do not hesitate to contact me. The office telephone contact is [phone]. Sincerely, Dr Akhil Reeves MD, [facility] - Urology Compassionate Specialist Care for the Genitourinary System Coding Level of Care Code New Pt Level 3 (92338) Diagnoses Hematuria R31.9 CPT Codes Post Residual Void - PVR CPT Code: 07655-Gnbu Void Residual by ultrasound ([id number])
== END 2024-09-12 13:35 | disposition home or self-care (01) ==
PROVIDERS: PCP Nurse Practitioner Family; Visit Provider Urology
DX: R31.9 Hematuria, unspecified (principal); Z13.9 Encounter for screening, unspecified
CPT/HCPCS: 99203

== ENCOUNTER → 2024-09-12 12:52 | Outpatient (BNVA) | payer OTHER, SELFPAY | PROVIDERS: PCP Nurse Practitioner Family; Visit Provider Urology | DX: R31.9 Hematuria, unspecified (principal) | CPT/HCPCS: 51798; 81003 ==

== ENCOUNTER 2024-11-07 07:34 | Outpatient (AMB) | payer OTHER, SELFPAY ==
--- NOTE | 2024-11-07 07:24 | A.OFFPC_ITS ---
Intake Visit Reasons: f/u medical updates Allergies codeine [CODEINE] Allergy (Unknown, Verified 11/07/24 07:26) HIVES ibuprofen Allergy (Unknown, Verified 11/07/24 07:26) Unknown Sulfa (Sulfonamide Antibiotics) [SULFA (SULFONAMIDE ANTIBIOTICS)] Allergy (Unknown, Verified 11/07/24 07:26) HIVES Medication List - Last Reconciled 11/07/24 by ELIGIO MeeksP- clonazepam 0.5 mg PO DAILY PRN dextroamphetamine-amphetamine 10 mg (Adderall) 10 mg PO BID epinephrine (EpiPen 2-Orion) 0.3 mg (0.3 mL) IM Q4H PRN estradiol 1 patch transdermal Q3D fluoxetine 60 mg PO DAILY loratadine (Claritin) 10 mg PO DAILY trazodone 50 mg PO BEDTIME PRN Tobacco use date assessed: 01/25/24 Dental Screening Dental Screen Date: 01/25/24 HPI f/u medical updates HPI Details History of Present Illness The patient is a 44-year-old female presenting with chronic lower back pain and bilateral hip pain. Her chronic lower back pain has radicular features extending to her buttocks, bilateral extremities, ankles, and toes. In August 2023, an MRI revealed L4-L5 disc degeneration, retrolisthesis, a disc bulge, mild canal narrowing, and spondylosis. She denies symptoms of cauda equina syndrome. Previous injections have provided short-term relief. Her bilateral hip pain, previously diagnosed as bursitis in [place], persists despite prior injections. She has a history of microscopic hematuria with negative cytology and an incomplete CT urogram due to familial circumstances. She has no symptoms related to urinary tract issues and has a three-year smoking pack history. Was seen by urology Review of Systems - Genitourinary: Denies flank pain, feve r, chills, nausea, vomiting, visible blood in urine, dysuria. - Musculoskeletal: Reports chronic lower back pain with radicular symptoms, reports bilateral hip pain. Plan The patient's chronic lower back pain, confirmed by MRI, is being monitored and may require referral to pain management or orthopedics based on symptom progression. Hip x-rays are planned to assess bilateral hip pain suspected as bursitis. A CT urogram is reordered due to previous findings of microscopic hematuria to further evaluate renal function. Tobacco use history will also be a subject for future health management discussions. Discussion Notes We discussed the chronic nature of her back and hip pain, the findings from pre- existing MRI, and potential further diagnostic imaging with hip x-rays. The possibility of referring to pain management and orthopedics was acknowledged. We agreed to reorder the CT urogram to gain further insight into her urinary health due to prior microscopic hematuria. The negative result of prior cytology was considered reassuring, although I emphasized the collection of comprehensive data. We also touched upon her past smoking history and the importance of monitoring associated risks. Patient Instructions - Follow up with hip x-rays as discussed . - Await CT urogram scheduling and comple te it as soon as possible. - Report any changes or worsening of edis k or hip pain immediately. - Avoid tobacco use and inform of any de sire to discuss cessation strategies. - Monitor urinary symptoms and report an y new issues. [facility] Medical History (Updated 11/07/24 @ 07:43 by Gal Valenzuela, [facility]) Obesity Lumbar facet joint syndrome Anxiety Depression Endometriosis Screening for breast cancer Surgical History H/O: hysterectomy History of excision of lesion (02/25/23) History of cholecystectomy History of tubal ligation H/O LEEP S/P removal of right ovary S/P anal fissurectomy Family History Maternal Aunt History of breast cancer Family/Other Ovarian cancer Sister Hodgkin lymphoma Social History Household Members: Family Housing: House Alcohol intake: current Alcohol intake frequency: holidays/special occasions only Patient Tobacco Use Status: Former Tobacco user e-Cigarette/Vaping Use: Never Used Second Hand Smoke Exposure: No Current occupational status: employed 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 Eric Browne, Tameka Felix, Jose Pagan and colleagues, with an educational martha from [employer] Physical exam (Primary Care) Tobacco/Smoking Status: Tobacco use Status Tobacco use date assessed 01/25/24 05/24/24 07:31 Patient Tobacco Use Status Former Tobacco user 05/24/24 07:31 e-Cigarette/Vaping Use Never Used 05/24/24 07:31 Thrive Assessment: Date of Thrive Assessment Date Thrive assessed 09/11/24 09/12/24 12:53 Telehealth Telehealth Telehealth Platform: [employer] Location of provider rendering services: practice address Location of patient: address on file Patient Identification confirmed using: Name, : Yes Telehealth method: video Patient verbally consented to treatment: Yes Patient verbally consented to billing insurance company: Yes Patient informed of any privacy concerns related to visit: Yes Minutes spent on Phone/Video with Pt.: 15 Coding Level of Care Code Tele Est Pt Level 3 (58844) Diagnoses Bilateral hip pain M25.551; M25.552 Hematuria R31.9 Chronic lower back pain M54.50; G89.29 Assessment & Plan Assessment & Plan (1) Bilateral hip pain: Code(s): M25.551 - Pain in right hip; M25.552 - Pain in left hip Category: Medical (2) Hematuria: Code(s): R31.9 - Hematuria, unspecified Category: Medical (3) Chronic lower back pain: Comment: with radiculopathy Code(s): M54.50 - Low back pain, unspecified; G89.29 - Other chronic pain Category: Medical Plan . Orders: Orders XR hips RAMONITA min 3V Today M25.551 - Pain in right hip, M25.552 - Pain in left hip CT urogram Today R31.9 - Hematuria, unspecified
--- OUTSIDE RECORDS SUMMARY | 2024-11-07 07:36 | XMS_ITS | Data Portability ---
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 Patient has history of allergic rhinitis, with food allergy confirmed on skin testing today that revealed marked sensitivities to nuts, seeds, legumes, wheat and other select items indicating that allergic factors are playing a significant role in symptoms and she would benefit with allergy treatment. Unclear if chronic urticaria symptoms secondary to above or exacerbated by some underlying immune mechanism. kstabile Not available 07/03/2017 17:56:47 07/15/2017 07/15/2017 Patient with onset of hives, etiology unclear, although lab panel unremarkable for underlying latex allergy or autoimmune process. Serum tryptase also normal. [email or web address] Not available 07/15/2017 11:18:08 Plan of Treatment Reminders Order Date Submit Date Provider Last Modified By Organization Details Last Modified Time Details Appointments None recorded. Lab None recorded. Referral None recorded. Procedures None recorded. Surgeries None recorded. Imaging None recorded. Medication Orders Auvi-Q 0.3 mg/0.3 mL injection, auto-injec tor 2016 017 INTERFACE [employer] [place] (New Address), [address] [place] [address], [address], [place], [id number], 7 10:49:45 ranitidine 150 mg tablet 2016 017 INTERFACE [id number], [address] [place], [address], 7 11:15:16 Gillian Allergy 180 mg tablet 2016 017 kstabile [id number], [address] [place], [address], 7 11:15:14 Auvi-Q 0.3 mg/0.3 mL injection, auto-injec tor 2016 017 INTERFACE [employer] [place] (New Address), [address] [place] [address], [address], [place], [place], [id number], 11:17:19 Patient TargetsNo targets recorded. Patient Instructions Encounter Date Encounter Id Patient Instructions Last Modified By Organization Details Last Modified Time 07/01/2017 [id number] chronic hives: care instructions [email or web address] Not available 07/01/2017 12:32:43 food allergy: ca re instructions sstabile Not available 07/01/2017 12:32:43 allergies: care instructions sstabile Not available 07/01/2017 12:32:43 Auvi Q device demonstrated kstabile Not available 07/03/2017 18:01:53 Allergy skin anna t results and diagnosis were reviewed with the patient who was advised that clinical correlation of skin tests with symptoms will be needed to help determine significance of results. She plans to implement dietary changes at this time. Treatment was discussed including use of routine antihistamine and she will resume Zyrtec and start Gillian 180 once daily in AM with twice daily ranitidine. Auvi Q on hand to use in the event of a severe allergic reaction (911/ER thereafter). Patient given order slip at [facility] for autoimmune studies including celiac, tryptase; latex IgE. Follow up in 1-2 weeks. [email or web address] Not available 07/03/2017 18:01:34 07/15/2017 [id number] Lab test results reviewed with the patient. Diagnosis and treatment discussed including use of routine antihistamine and she will start ranitidine as prescribed last visit. Continue with dietary avoidance and follow up in 6-8 weeks. [email or web address] Not available 07/15/2017 10:43:16 Reason for Referral None Reported. Results Created Date Observation Date Name Description Value Unit Range Abnormal Flag Note LastModifiedBy Organization Detail LastModifiedTime 07/01/20 17 07/01/2017 unexp chris d fatig ue profi le celikey ttg IgA 0.5 U/mL 0-7 normal <7 Negat vivi 7-10 Equiv ocal >10 Posit vivi Not Available [facility] - [address], [address], 07/11/2017 06:12:27 07/01/20 17 07/01/2017 unexp chris d fatig ue profi le celikey ttg IgG <0.6 U/mL 0-7 normal <7 Negat vivi 7-10 Equiv ocal >10 Posit vivi Not Available [facility] - [address], [address], 07/11/2017 06:12:27 07/01/20 17 07/01/2017 unexp chris d fatig ue profi le gliadin,deam idated peptide IgA 0.8 U/mL 0-7 normal <7 Negat vivi 7-10 Equiv ocal >10 Posit vivi Not Available [facility] - [address], [address], 07/11/2017 06:12:27 07/01/20 17 07/01/2017 unexp chris d fatig ue profi le gliadin,deam idated peptide IgG <0.4 U/mL 0-7 normal <7 Negat vivi 7-10 Equiv ocal >10 Posit vivi Not Available [facility] - [address], [address], 07/11/2017 06:12:27 07/01/20 17 07/01/2017 unexp chris d fatig ue profi le cyclic citrullinate d peptide IgG 0.8 U/mL 0-7 normal <7 Negat vivi 7-10 Equiv ocal >10 Posit vivi Not Available [facility] - [address], [address], 07/11/2017 06:12:27 07/01/20 17 07/01/2017 unexp chris d fatig ue profi le EMMANUEL screen(symph antonio) 0.2 ratio 0-0.7 normal <0.7 Negat vivi 0.7-1 .00 Equiv ocal >1.00 Posit vivi Not Available [address], [address], 07/11/2017 06:12:27 07/01/20 17 07/01/2017 unexp chris d fatig ue profi le dsdna <0.5 IU/mL 0-10 normal <10 Negat vivi 10-15 Equiv ocal >15 Posit vivi Not Available [address], [address], 07/11/2017 06:12:27 07/01/20 17 07/01/2017 unexp chris d fatig ue profi le rheumatoid factor IgA 2.9 IU/mL 0-14 normal <14 Negat vivi 14-20 Equiv ocal >20 Posit vivi Not Available [address], [address], 07/11/2017 06:12:27 07/01/20 17 07/01/2017 unexp chris d fatig ue profi le rheumatoid factor IgM 0.5 U/mL 0-3.5 normal <3.5 Negat vivi 3.5-5 .0 Equiv ocal >5.0 Posit vivi Not Available [address], [address], 07/11/2017 06:12:27 07/01/20 17 07/01/2017 thyro id perox idase (tpo) Ab, serum thyroid peroxidase IgG <4 IU/mL 0-25 normal <25 Negat vivi 25-35 Equiv ocal >35 Posit vivi Not Available [address] [place], [address], 07/11/2017 06:12:27 07/01/20 17 07/01/2017 thyro globu robbie Ab, serum thyroglobuli n IgG <12 IU/mL 0-40 normal <40 Negat vivi 40-60 Equiv ocal >60 Posit vivi Not Available [facility] - [address], [address], 07/11/2017 06:12:28 07/01/20 17 07/01/2017 latex (H.br azili ensis ) latex (H.brazilien sis) <0.10 kU/L 0-0.10 normal Not Available [facility] - [address], [address], 07/11/2017 06:12:28 07/01/20 17 07/01/2017 trypt ase, serum tryptase 5 <11 normal The Trypt ase test, fluor escen t enzym e immun oassa y (FEIA ), measu res both the Alpha and Beta forms of Trypt ase. Measu ring both forms of Trypt ase incre ases sensi tivit y for the diagn osis of masto cytos is, and mast cell degra nulat ion as a cause of anaph ylaxi s. This test was perfo rmed at: [facility] [address] [place], [place] Not Available [facility] - [address], [address], 07/11/2017 06:12:28 Result Notes None recorded. Problems Name Problem SNOMED Code Status Onset Date Resolution Date Notes Provider Name and Address Organization Details Recorded Time Depressive disorder 10775345 Active Taye Hernandes MD [address], [place], [address], [facility] - [facility] 7 10:07:33 Diabetes mellitus 27765320 Active Taye Hernandes MD [address] [place] [address] Rd,[address], [place], [address], [facility] 7 10:08:03 Allergy to food 574171922 Active 2009 peanuts have given hives, lip swelling Taye Hernandes MD [address] [place] [address] Rd,[address], [place], [address], [facility] 7 11:14:55 Perennial allergic conjunctivi tis 072005501 Active 1995 Taye Hernandes MD [address] [place] [address] Rd,[address], [place], [address], [facility] 7 11:10:05 Perennial allergic rhinitis 512014540 Active 1995 Taye Hernandes MD [address] [place] [address] Rd[address], [place], [address], [facility] 7 11:10:33 Polycystic ovaries Active Taye Hernandes MD [address] [place] [address] Rd,[address], [place], [address], [facility] 7 11:12:08 Smoker 74983773 Active Taye Hernandes MD [address] [place] [address] Rd,[address], [place], [address], [facility] 7 17:31:12 Problem Notes None recorded. Procedures Surgical History Date Name Laterality Status Provider Name and Address Organization Details Recorded Time 7 Food Allergy Skin Test completed Taye Hernandes MD [address] [place] [address] Rd,[address], [place], [address], [facility] 07/01/2017 11:21:17 7 LEEP completed Taye Hernandes MD [address] [place] [address] Rd,[address], [place], [address], [facility] 07/01/2017 10:05:11 5 Auto Striper Surgery completed Taye Hernandes MD [address] [place] [address] Rd,[facility] [address], [place], [address], [facility] 07/01/2017 10:05:26 3 Auto Striper Surgery completed Taye Hernandes MD [address],[facility] [address], [place], [address], [facility] 07/01/2017 10:05:39 1 Other completed Taye Hernandes MD [address],[facility] [address], [place], [address], [facility] 07/01/2017 10:05:58 Imaging Results None recorded. Procedure Notes None recorded. Medical Equipment None Reported. Allergies Allergen ID Allergen Name Allergen Category Reaction Reaction Severity Criticality Documentation Date Start Date Code Code System Note Provider Name and Address Organization Details Recorded Time 7380 codeine medicatio n Not available Not available Not available 07/01/2017 2670 RxNorm Taye Hernandes MD [address],[facility] [address], [place], [address], [facility] 7 10:14:10 7381 Substance with sulfonami de structure and antibacte rial mechanism of action (substanc e) medicatio n Not available Not available Not available 07/01/2017 87792 8003 SNOMED Taye Hernandes MD [address] [place] [address] Rd,[facility] [address], [address], [facility] 7 10:14:17 Medications Name Sig Start Date Stop Date Status Note LastModified by Organization Details LastModified Time trazodone 50 mg tablet active Not Available Not Available No t Available azithromycin 250 mg tablet active Not Available Not Availabl e Not Available clonazepam 0.5 mg tablet active Not Available Not Availabl e Not Available ciprofloxacin 500 mg tablet active Not Available Not Availabl e Not Available Tamiflu 75 mg capsule active Not Available Not Available Not Available dexamethasone 1 mg tablet active Not Available Not Available Not Available mirtazapine 30 mg tablet active Not Available Not Available Not Available metformin 1,000 mg tablet active Not Available Not Available Not Available ranitidine 150 mg tablet Take 1 tablet twice a day by oral route. 2016 active Not Available Not Available Not Avai lable buspirone 10 mg tablet active Not Available Not Available No t Available clotrimazole- betamethasone 1 %-0.05 % topical cream active Not Available Not Availabl e Not Available ibuprofen 600 mg tablet active Not Available Not Available No t Available methylprednis olone 4 mg tablets in a dose pack active Not Available Not Available No t Available ketoconazole 2 % topical cream active Not Available Not Available Not Available cyclobenzapri ne 5 mg tablet active Not Available Not Available Not Available duloxetine 60 mg capsule,delay ed release active Not Available Not Available N ot Available Gillian Allergy 180 mg tablet Take 1 tablet every day by oral route. 2016 active Not Available Not Available Not Avai lable Auvi-Q 0.3 mg/0.3 mL injection, auto-injector Take 1 auto as needed by injection route as directed. 2016 active Not Available Not Available Not Avai lable Vitals Date Recorded Body height Body mass index (BMI) Body weight Heart rate Oxygen saturation Oxygen saturation in Arterial blood by Pulse oximetry Respiratory rate Body temperature Systolic blood pressure Diastolic blood pressure Provider Name and Address Organization Details Last Updated DateTime 7 171.45 cm 31.2 kg/m2 03442.6 6 g 74 /min 99 % 99 % 16 /min 98.4 [degF] 124 mm[Hg] 76 mm[Hg] Taye Hernandes MD [address] [facility],[address], [place], [address] [place] [address] [facility] 7 11:16:48 Date Recorded Body height Body mass index (BMI) Body weight Respiratory rate Heart rate Body temperature Oxygen saturation Oxygen saturation in Arterial blood by Pulse oximetry Systolic blood pressure Diastolic blood pressure Provider Name and Address Organization Details Last Updated DateTime 7 171.45 cm 31.2 kg/m2 34900.6 6 g 16 /min 76 /min 98.6 [degF] 99 % 99 % 120 mm[Hg] 76 mm[Hg] Taye Hernandes MD [address] [facility],[address], [place], [address] 7 10:19:51 Social History Question Answer Notes LastModified by Organizat ion Details LastModified Time Tobacco Smoking Status Current Every Day Smoker since 1996 Not Available [employer] 06/04/2020 03:30:30 What Is Your Level Of Alcohol Consumption? Occasional 3/week [id number] Information not available 06/04/2020 Animal Exposure? Yes Information not available 07/01/2017 What Is Your Occupation? 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 [id number] Information not available 06/04/2020 [place] In Bedroom [place] Information not available 07/01/2017 [place] In Family/living/ rooms [place] Information not available 07/01/2017 Type Of Residence Single Family House Information not available 07/01/2017 Dogs At Home 2 Information not available 07/01/2017 Cats At Home 2 Information not available 07/01/2017 [address] Born/raised [place] Information not available 07/01/2017 Years Living In [place] Since 2001 Information not available 07/01/2017 Marital Status Informatio n not available 07/01/2017 What Was The Date Of Your Most Recent Tobacco Screening? 07/01/2017 [id number] Information not available 06/04/2020 How Much Tobacco Do You Smoke? 1 PPW [id number] Information not available 06/04/2020 Sex: Unknown Functional Status None recorded. Mental Status None recorded. Family History Relationship Description Onset Age of this Age Resolved Age Notes LastModified by Organization Details LastModified Time Mother Hypertensive disorder kstabile Not available 2016 10:01:45 Notes:hodgkins in sibling Medical History Condition Response Allergies/Hayfever Y Diabetes Y Food Allergy Y Hives Y Depression Y Asthma N Gynecological HistoryNo gynecological history recorded. Obstetrics History GPAL:G 0 P 0 0 0 0 Past Encounters Encounter ID Performer Location Encounter Start Date Encounter Closed Date Diagnosis/Indication Diagnosis SNOMED-CT Code Diagnosis ICD10 Code Diagnosis Note [id number] Taye Hernandes MD Main Office [address] [place] [address] 07/01/2017 09:50:42 07/01/2017 11:05:03 Fatigue 06127041 R53.83 Perennial allergic rhinitis 852075102 J30.89 Allergy to food 77039889 1 Z91.018 Chronic urticaria 105885 05 L50.8 [id number] Taye Hernandes MD Main Office [address] [facility] [place] [address] 07/15/2017 10:04:25 07/15/2017 10:36:27 Allergy to food 032693276 Z91.018 Perennial allergic rhinitis 974468857 J30.89 Chronic urticaria 059393 05 L50.8 Health Concerns Section Related Observation LastModified by Organization Detai ls LastModified Time None Recorded Concern Status LastModified by Organization Details LastModified Time None Recorded Advance Directives Directive None Recorded Payers Encounter Date Sequence Insurance Name Policy Number Policy Fernández Covered Member ID Fernández Member ID Guarantor Name 07/01/2017 1 [employer] (POS) [id number] Cande A Ashline [id number] Cande Ashline 07/15/2017 1 [employer] (POS) [id number] Cande A Ashline [id number] Cande Ashline Notes Date Note Type Note Provider Name and Address Organization Details Recorded Time 07/01/2017 text/html Patient describe s longstanding history of nasal-ocular allergy symptoms initially treated during childhood in [place] with eventual improvement after move to [place] 15 years ago over which time she would use Zyrtec as needed for seasonal symptoms. She reports first developing food allergy symptoms from peanut about 8 years ago characterized as hives and lip edema and has since avoided all nuts (similar symptoms). Recent concerns with recurring hives since November 2016 did not seem to have an apparent trigger and mainly occur on arms, legs (no chapo-facial symptoms or edema). Laboratory allergy panel done in April 2017 confirmed a multitude of environmental allergies along with several foods. Upon review no new medications or prolonged illnesses when symptoms first appeared although she gets fatigued easily and symptoms interfere with activities and sleep. Patient feels there may be some other foods possibly triggering symptoms. Taye Hernandes MD [address], [place], [address], [facility] - [facility] 07/03/2017 18:05:49 07/15/2017 text/html Here to review l ab results.Kiley dotson dietary avoidance measures. Patient plans to review buspar with her doctor since recalls it was initiated around time that hives first appeared. Not yet started ranitidine but feels that combination of Zyrtec and Gillian helping. Taye Hernandes MD [address], [place], [address], [facility] - [facility] 07/15/2017 11:18:30 OBGyn Episode No OBEpisode recorded.
== END 2024-11-07 07:53 | disposition home or self-care (01) ==
LOC: HO.HMCC 07:34
PROVIDERS: PCP Nurse Practitioner Family; Visit Provider Nurse Practitioner Family
DX: M25.551 Pain in right hip (principal); M25.552 Pain in left hip; R31.9 Hematuria, unspecified; M54.50 Low back pain, unspecified; G89.29 Other chronic pain

== ENCOUNTER → 2024-11-07 07:34 | Outpatient (BNVA) | payer OTHER, SELFPAY | PROVIDERS: PCP Nurse Practitioner Family; Visit Provider Nurse Practitioner Family | DX: Z13.89 Encounter for screening for other disorder (principal); M25.551 Pain in right hip; M25.552 Pain in left hip ==

== ENCOUNTER 2024-12-09 11:28 | Outpatient (REF) | payer OTHER, SELFPAY ==
--- NOTE | ~2024-12-09 | XR_ITS ---
EXAMINATION: XR BILATERAL HIPS WITH AP PELVIS CLINICAL INFORMATION: M25.551 - Pain in right hip COMPARISON: None available. TECHNIQUE: AP and frog-leg lateral views of each hip were obtained. FINDINGS: RIGHT HIP: No fracture, dislocation, or suspicious bone lesion. Normal alignment. Normal acetabular coverage. Joint spaces preserved. Femoral head is normal in contour without evidence of AVN. Normal soft tissues. LEFT HIP: No fracture, dislocation, or suspicious bone lesion. Normal alignment. Normal acetabular coverage. Joint spaces preserved. Femoral head is normal in contour without evidence of AVN. Normal soft tissues. XR/XR hips RAMONITA min 3V IMPRESSION: Normal bilateral hip radiographs. Electronically signed by: Bk Morales MD 12/11/2024 08:57 AM EDT
== END 2024-12-09 11:29 | disposition home or self-care (01) ==
LOC: HO.HMGCX 11:28
PROVIDERS: PCP Nurse Practitioner Family; Visit Provider Nurse Practitioner Family
DX: M25.551 Pain in right hip (principal); M25.552 Pain in left hip
CPT/HCPCS: 73522

== ENCOUNTER → 2024-12-09 11:30 | Outpatient (BNV) | payer OTHER, SELFPAY | PROVIDERS: PCP Nurse Practitioner Family; Visit Provider Radiology Diagnostic Radiology | DX: M25.551 Pain in right hip (principal) | CPT/HCPCS: 73522 ==

== ENCOUNTER 2024-12-29 07:41 | Outpatient (REF) | payer OTHER, SELFPAY ==
--- NOTE | ~2024-12-29 | CT_ITS ---
EXAMINATION: CT ABDOMEN PELVIS UROGRAPHY WITHOUT THEN WITH IV CONTRAST HISTORY: R31.9 - Hematuria, unspecified COMPARISON: There are no prior studies available for comparison. TECHNIQUE: CT scan of the abdomen and pelvis was performed before and after the intravenous administration of 85 mL Omnipaque 350. Postcontrast images were obtained using a split bolus technique. Coronal and sagittal reformatted images were generated and reviewed. Oral contrast material was not administered per department protocol. This CT exam was performed with one or more of the following dose reduction techniques: automated exposure control, adjustment of the mA and/or kV according to patient size, use of iterative reconstruction technique. DLP: 924 mGy-cm ABDOMEN: LOWER CHEST: The visualized lung bases are clear. There is no pleural effusion. CARDIOVASCULATURE: The heart is normal in size. There is no pericardial effusion. LIVER: The liver is normal in size and contour. There is a 7 mm probable cyst in the inferior aspect of the right lobe. A smaller probable cyst is noted in the more superior aspect of the right lobe. The hepatic and portal veins are patent. GALLBLADDER / BILE DUCTS: The gallbladder is surgically absent. There is no intra or extrahepatic biliary ductal dilatation. SPLEEN: The spleen is normal in size. No focal splenic lesion is identified. PANCREAS: The pancreas is unremarkable in appearance. ADRENAL GLANDS: Within normal limits. KIDNEYS/RETROPERITONEUM: No renal or ureteral calculi are identified. There is no hydronephrosis or hydroureter. No renal masses are identified. The intrarenal collecting systems are unremarkable in appearance. No ureteral filling defects are identified. LYMPH NODES: No abdominal or pelvic lymphadenopathy. VASCULATURE: The abdominal aorta is normal in caliber. MESENTERY/PERITONEUM: No free fluid. No masses. There is no free intraperitoneal gas. STOMACH: The stomach is collapsed, limiting evaluation. SMALL BOWEL: The small bowel is normal in caliber. COLON: There is a moderate amount of stool throughout the colon. APPENDIX: Normal. URINARY BLADDER/PELVIC ORGANS: The urinary bladder is unremarkable. The patient is status post hysterectomy. BONES / SOFT TISSUES: No suspicious bony or soft tissue abnormalities. CT/CT urogram IMPRESSION: Unremarkable CT urogram. Electronically signed by: Eric Funes MD 12/29/2024 09:06 AM KAMRYN MAGANA
--- OUTSIDE RECORDS SUMMARY | 2024-12-29 07:43 | XMS_ITS | Data Portability ---
Author Organization [place] - [facility], autoContract Address [address] [place] [address] Care Team Providers Care [employer] Registrar Name Role Phone MICHELE ADDISON Referring Provider [phone] Assessment Encounter Date Assessment Date Assessment LastModified [...] mL injection, auto-injec tor 2016 017 INTERFACE [employer] (New Address), [address] [place] [address], [address], [place], [id number], 7 10:49:45 ranitidine 150 mg tablet 2016 017 INTERFACE [id number], [address] [place], [address], 7 11:15:16 Gillian Allergy 180 mg tablet 2016 017 kstabile [id number], [address] [place], [address], 7 11:15:14 Auvi-Q 0.3 mg/0.3 mL injection, auto-injec tor 2016 017 INTERFACE [employer] (New Address), [address] [place] [address], [address], [place], [place], [id number], 11:17:19 Patient TargetsNo targets recorded. Patient Instructions Encounter Date Encounter Id Patient Instructions Last Modified By Organization Details Last Modified Time 07/01/2017 [id number] chronic hives: care instructions sstabile Not available [...] (911/ER thereafter). Patient given order slip at [facility] for autoimmune studies including celiac, tryptase; latex IgE. Follow up in 1-2 weeks. [email or web address] Not available 07/03/2017 18:01:34 07/15/2017 [id number] Lab test results reviewed with the patient. [...] Equiv ocal >10 Posit vivi Not Available [facility] - [address], [address], 07/11/2017 06:12:27 07/01/20 17 07/01/2017 unexp chris d fatig ue profi le celikey ttg IgG <0.6 U/mL 0-7 normal <7 Negat vivi 7-10 Equiv ocal >10 Posit vivi Not Available [facility] - [address], [address], 07/11/2017 06:12:27 07/01/20 17 07/01/2017 unexp chris d fatig ue profi le gliadin,deam idated peptide IgA 0.8 U/mL 0-7 normal <7 Negat vivi 7-10 Equiv ocal >10 Posit vivi Not Available [facility] - [address], [address], 07/11/2017 06:12:27 07/01/20 17 07/01/2017 unexp chris d fatig ue profi le gliadin,deam idated peptide IgG <0.4 U/mL 0-7 normal <7 Negat vivi 7-10 Equiv ocal >10 Posit vivi Not Available [facility] - [address], [address], 07/11/2017 06:12:27 07/01/20 17 07/01/2017 unexp chris d fatig ue profi le cyclic citrullinate d peptide IgG 0.8 U/mL 0-7 normal <7 Negat vivi 7-10 Equiv ocal >10 Posit vivi Not Available [facility] - [address], [address], 07/11/2017 06:12:27 07/01/20 17 07/01/2017 unexp chris d fatig ue profi le EMMANUEL screen(symph antonio) 0.2 ratio 0-0.7 normal <0.7 Negat vivi 0.7-1 .00 Equiv ocal >1.00 Posit vivi Not Available [address], [address], 07/11/2017 06:12:27 07/01/20 17 07/01/2017 unexp chris d fatig ue profi le dsdna <0.5 IU/mL 0-10 normal <10 Negat vivi 10-15 Equiv ocal >15 Posit vivi Not Available [address], [address], 07/11/2017 06:12:27 07/01/20 17 07/01/2017 unexp chris d fatig ue profi le rheumatoid factor IgA 2.9 IU/mL 0-14 normal <14 Negat vivi 14-20 Equiv ocal >20 Posit vivi Not Available [address], [address], 07/11/2017 06:12:27 07/01/20 17 07/01/2017 unexp chris d fatig ue profi le rheumatoid factor IgM 0.5 U/mL 0-3.5 normal <3.5 Negat vivi 3.5-5 .0 Equiv ocal >5.0 Posit vivi Not Available [address], [address], 07/11/2017 06:12:27 07/01/20 17 07/01/2017 thyro id perox idase (tpo) Ab, serum thyroid peroxidase IgG <4 IU/mL 0-25 normal <25 Negat vivi 25-35 Equiv ocal >35 Posit vivi Not Available [address] [place], [address], 07/11/2017 06:12:27 07/01/20 17 07/01/2017 thyro globu robbie Ab, serum thyroglobuli n IgG <12 IU/mL 0-40 normal <40 Negat vivi 40-60 Equiv ocal >60 Posit vivi Not Available [facility] - [address], [address], 07/11/2017 06:12:28 07/01/20 17 07/01/2017 latex (H.br azili ensis ) latex (H.brazilien sis) <0.10 kU/L 0-0.10 normal Not Available [facility] - [address], [address], 07/11/2017 06:12:28 07/01/20 17 07/01/2017 trypt ase, [...] rmed at: [facility] [address] [place], [place] Not Available [facility] - [address], [address], 07/11/2017 06:12:28 Result Notes None recorded. Problems Name Problem SNOMED Code Status Onset Date Resolution Date Notes Provider Name and Address Organization Details Recorded Time Depressive disorder 79570096 Active Taye Hernandes MD [address], [place], [address], [facility] - [facility] 7 10:07:33 Diabetes mellitus 10767418 Active Taye Hernandes MD [address] [place] [address] Rd,[address], [place], [address], [facility] 7 10:08:03 Allergy to food 403939712 Active 2009 peanuts have given hives, lip swelling Taye Hernandes MD [address] [place] [address] Rd,[address], [place], [address], [facility] 7 11:14:55 Perennial allergic conjunctivi tis 094382142 Active 1995 Taye Hernandes MD [address] [place] [address] Rd,[address], [place], [address], [facility] 7 11:10:05 Perennial allergic rhinitis 111540913 Active 1995 Taye Hernandes MD [address] [place] [address] Rd,[address], [place], [address], [facility] 7 11:10:33 Polycystic ovaries Active Taye Hernandes MD [address] [place] [address] Rd,[address], [place], [address], [facility] 7 11:12:08 Smoker 76420332 Active Taye Hernandes MD [address] [place] [address] Rd,[address], [place], [address], [facility] 7 17:31:12 Problem Notes None recorded. Procedures Surgical History Date Name Laterality Status Provider Name and Address Organization Details Recorded Time 7 Food Allergy Skin Test completed Taye Hernandes MD [address] [place] [address] Rd,[address], [place], [address], [facility] 07/01/2017 11:21:17 7 LEEP completed Taye Hernandes MD [address] [place] [address] Rd,[address], [place], [address], [facility] 07/01/2017 10:05:11 5 [employer] Surgery completed Taye Hernandes MD [address] [place] [address] Rd,[facility] [address], [place], [address], [facility] 07/01/2017 10:05:26 3 [employer] Surgery completed Taye Hernandes MD [address],[facility] [address], [place], [address], [facility] 07/01/2017 10:05:39 1 Other completed Taye Hernandes MD [address],[facility] [address], [place], [address], [facility] 07/01/2017 10:05:58 Imaging Results None recorded. Procedure Notes None recorded. Medical Equipment None Reported. Allergies Allergen ID Allergen Name Allergen Category Reaction Reaction Severity Criticality Documentation Date Start Date Code Code System Note Provider Name and Address Organization Details Recorded Time 7380 codeine medicatio n Not available Not available Not available 07/01/2017 2670 RxNorm Taye Hernandes MD [address],[facility] [address], [place], [address], [facility] 7 10:14:10 7381 Substance with sulfonami de structure and antibacte rial mechanism of action (substanc e) medicatio n Not available Not available Not available 07/01/2017 99147 8003 SNOMED Taye Hernandes MD [address] [place] [address] Rd,[facility] [address], [place], [address], [facility] 7 10:14:17 Medications [...] Updated DateTime 7 171.45 cm 31.2 kg/m2 54870.6 6 g 74 /min 99 % 99 % 16 /min 98.4 [degF] 124 mm[Hg] 76 mm[Hg] Taye Hernandes MD [address] [facility],[address], [place], [address] [place] [address] [facility] 7 11:16:48 Date Recorded Body height Body mass index (BMI) Body weight Respiratory rate Heart rate Body temperature Oxygen saturation Oxygen saturation in Arterial blood by Pulse oximetry Systolic blood pressure Diastolic blood pressure Provider Name and Address Organization Details Last Updated DateTime 7 171.45 cm 31.2 kg/m2 30136.6 6 g 16 /min 76 /min 98.6 [degF] 99 % 99 % 120 mm[Hg] 76 mm[Hg] Taye Hernandes MD [address] [facility],[address], [place], [address] [facility] 7 10:19:51 Social History Question Answer Notes LastModified by [employer] Details LastModified Time Tobacco Smoking Status Current Every Day Smoker since 1996 Not Available [employer] 06/04/2020 03:30:30 Animal Exposure? Yes Information not available 07/01/2017 [place] In Bedroom [place] Information not available 07/01/2017 [place] In Family/living/ rooms [place] Information not available 07/01/2017 Type Of Residence Single Family House Information not available 07/01/2017 Dogs At Home 2 Information not available 07/01/2017 Cats At Home 2 Information not available 07/01/2017 Place Born/raised [place] Information not available 07/01/2017 Years Living In [place] Since 2001 Information not available 07/01/2017 Marital Status Informatio n not available 07/01/2017 What Was The Date Of Your Most Recent Tobacco Screening? 07/01/2017 [id number] Information not available 06/04/2020 How Much Tobacco Do You Smoke? 1 PPW [id number] Information not available 06/04/2020 Sex: Unknown Functional Status Question Answer Note LastModified by [employer] Details LastModified Time What is your level of alcohol consumption? 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 Family History Relationship Description Onset Age of this Age Resolved Age Notes LastModified by Organization Details LastModified Time Mother Hypertensive disorder kstabile Not available 2016 10:01:45 Notes:hodgkins in sibling Medical History Condition Response Diabetes Y Allergies/Hayfever Y Food Allergy Y Hives Y Depression Y Asthma N Gynecological HistoryNo gynecological history recorded. Obstetrics History GPAL:G 0 P 0 0 0 0 Past Encounters Encounter ID Performer Location Encounter Start Date Encounter Closed Date Diagnosis/Indication Diagnosis SNOMED-CT Code Diagnosis ICD10 Code Diagnosis Note [id number] Taye Hernandes MD Main Office [address] [place] [address] 07/01/2017 09:50:42 07/01/2017 11:05:03 Fatigue 92030825 R53.83 Perennial allergic rhinitis 087833879 J30.89 Allergy to food 17425433 1 Z91.018 Chronic urticaria 861251 05 L50.8 [id number] Taye Hernandes MD Main Office [address] [facility] [address] [place] [address] 07/15/2017 10:04:25 07/15/2017 10:36:27 Allergy to food 647524289 Z91.018 Perennial allergic rhinitis 687989834 J30.89 Chronic urticaria 982837 05 L50.8 Health Concerns Section Related Observation LastModified by Organization Detai ls LastModified Time None Recorded Concern Status LastModified by Organization Details LastModified Time None Recorded Advance Directives Directive None Recorded Payers Encounter Date Sequence Insurance Name Policy Number Policy Fernández Covered Member ID Fernández Member ID Guarantor Name 07/01/2017 1 [employer] (POS) [id number] Cande A Ashline [id number] Cande Ashline 07/15/2017 1 [employer] (POS) [id number] Cande A Ashline [id number] [facility] Notes Date Note Type Note Provider Name and Address Organization Details Recorded Time 07/01/2017 text/html Patient describe s longstanding history of nasal-ocular allergy symptoms initially treated during childhood in [place] with eventual improvement after move to [place] 15 years ago over which time she [...] possibly triggering symptoms. Taye Hernandes MD [address], [place], [address], [facility] 07/03/2017 18:05:49 07/15/2017 text/html Here to review l ab results.Isaacin nila dietary avoidance measures. Patient plans to review buspar with her doctor since recalls it was initiated around time that hives first appeared. Not yet started ranitidine but feels that combination of Zyrtec and Gillian helping. Taye Hernandes MD [address], [place], [address], [facility] 07/15/2017 11:18:30 OBGyn Episode No OBEpisode recorded.
[2024-12-29] MEDS: iohexoL 350 MG/ML 100 ML INFUS..BTL IV (08:47)
== END 2024-12-29 07:42 | disposition home or self-care (01) ==
LOC: HO.CT 07:41
PROVIDERS: PCP Nurse Practitioner Family; Visit Provider Nurse Practitioner Family
DX: R31.9 Hematuria, unspecified (principal)
CPT/HCPCS: 74178; Q9967

== ENCOUNTER → 2024-12-29 07:44 | Outpatient (BNV) | payer OTHER, SELFPAY | PROVIDERS: PCP Nurse Practitioner Family; Visit Provider Radiology Diagnostic Radiology | DX: R31.9 Hematuria, unspecified (principal) | CPT/HCPCS: 74178 ==

== ENCOUNTER 2025-02-16 07:20 | Outpatient (REF) | payer OTHER, SELFPAY ==
--- OUTSIDE RECORDS SUMMARY | 2025-02-16 07:23 | XMS_ITS | Data Portability ---
Author Organization [place] - [facility], autoContract Address [address] [place] [address] Care Team Providers Care Ict Educator Name Role Phone MICHELE ADDISON Referring Provider [...] mL injection, auto-injec tor 2016 017 INTERFACE [employer], [employer] (New Address), [address] [place] [address], [address] [place] [address], [id number], 7 10:49:45 ranitidine 150 mg tablet 2016 017 INTERFACE [facility][id number], [address] [place], [address], 7 11:15:16 Gillian Allergy 180 mg tablet 2016 017 kstabile [id number], [address] [place], [address], 7 11:15:14 Auvi-Q 0.3 mg/0.3 mL injection, auto-injec tor 2016 017 INTERFACE [employer], [employer] (New Address), [address] [place] [address], [address], [place], [place], [phone], 11:17:19 Patient TargetsNo targets recorded. Patient Instructions Encounter Date Encounter Id Patient Instructions Last Modified By Organization Details Last Modified Time 07/01/2017 [id number] chronic hives: care instructions [email or web address] Not available [...] (911/ER thereafter). Patient given order slip at [facility] for autoimmune studies including celiac, tryptase; latex IgE. Follow up in 1-2 weeks. [email or web address] Not available 07/03/2017 18:01:34 07/15/2017 [id number] Lab test results reviewed with the patient. [...] Equiv ocal >10 Posit vivi Not Available [facility] - [address], [address], 07/11/2017 06:12:27 07/01/20 17 07/01/2017 unexp chris d fatig ue profi le celikey ttg IgG <0.6 U/mL 0-7 normal <7 Negat vivi 7-10 Equiv ocal >10 Posit vivi Not Available [address], [address], 07/11/2017 06:12:27 07/01/20 17 07/01/2017 unexp chris d fatig ue profi le gliadin,deam idated peptide IgA 0.8 U/mL 0-7 normal <7 Negat vivi 7-10 Equiv ocal >10 Posit vivi Not Available [address], [address], 07/11/2017 06:12:27 07/01/20 17 07/01/2017 unexp chris d fatig ue profi le gliadin,deam idated peptide IgG <0.4 U/mL 0-7 normal <7 Negat vivi 7-10 Equiv ocal >10 Posit vivi Not Available [address], [address], 07/11/2017 06:12:27 07/01/20 17 07/01/2017 unexp chris d fatig ue profi le cyclic citrullinate d peptide IgG 0.8 U/mL 0-7 normal <7 Negat vivi 7-10 Equiv ocal >10 Posit vivi Not Available [facility] - [address], [address], 07/11/2017 06:12:27 07/01/20 17 07/01/2017 unexp chris d fatig ue profi le EMMANUEL screen([facility] [place]) 0.2 ratio 0-0.7 normal <0.7 Negat vivi 0.7-1 .00 Equiv ocal >1.00 Posit vivi Not Available [facility] - [address], [address], 07/11/2017 06:12:27 07/01/20 17 07/01/2017 unexp chris d fatig ue profi le dsdna <0.5 IU/mL 0-10 normal <10 Negat vivi 10-15 Equiv ocal >15 Posit vivi Not Available [address], [address], 07/11/2017 06:12:27 07/01/20 17 07/01/2017 unexp chris d fatig ue profi le rheumatoid factor IgA 2.9 IU/mL 0-14 normal <14 Negat vivi 14-20 Equiv ocal >20 Posit vivi Not Available [address], [address], 07/11/2017 06:12:27 07/01/20 17 07/01/2017 unexp chris d fatig ue profi le rheumatoid factor IgM 0.5 U/mL 0-3.5 normal <3.5 Negat vivi 3.5-5 .0 Equiv ocal >5.0 Posit vivi Not Available [address], [address], 07/11/2017 06:12:27 07/01/20 17 07/01/2017 thyro id perox idase (tpo) Ab, serum thyroid peroxidase IgG <4 IU/mL 0-25 normal <25 Negat vivi 25-35 Equiv ocal >35 Posit vivi Not Available [place] [address] [place] [address], [address], 07/11/2017 06:12:27 07/01/20 17 07/01/2017 thyro globu robbie Ab, serum thyroglobuli n IgG <12 IU/mL 0-40 normal <40 Negat vivi 40-60 Equiv ocal >60 Posit vivi Not Available [facility] [place] [address] [place] [address], [address], 07/11/2017 06:12:28 07/01/20 17 07/01/2017 latex (H.br azili ensis ) latex (H.brazilien sis) <0.10 kU/L 0-0.10 normal Not Available [facility] - [place] [address] [place] [address], [address], 07/11/2017 06:12:28 07/01/20 17 07/01/2017 trypt ase, [...] rmed at: [facility] [address] [place], [place] Not Available [facility] - [address], [address], 07/11/2017 06:12:28 Result Notes None recorded. Problems Name Problem SNOMED Code Status Onset Date Resolution Date Notes Provider Name and Address Organization Details Recorded Time Depressive disorder 37808433 Active Taye Hernandes MD [address] [place] [address] [address], [place], [address], [facility] - [facility] 7 10:07:33 Diabetes mellitus 98459963 Active Taye Hernandes MD [address], [place], [address], [facility] 7 10:08:03 Polycystic ovaries Active Taye Hernandes MD [address] [place] [address] [address], [place], [address], [facility] 7 11:12:08 Smoker 30667995 Active Taye Hernandes MD [address] [place] [address] [address], [place], [address], [facility] 7 17:31:12 Perennial allergic conjunctivi tis 131574792 Active 1995 Taye Hernandes MD [address] [place] [address] [address], [place], [address], [facility] 7 11:10:05 Perennial allergic rhinitis 968969469 Active 1995 Taye Hernandes MD [address] [place] [address] [address], [place], [address], [facility] 7 11:10:33 Allergy to food 788223478 Active 2009 peanuts have given hives, lip swelling Taye Hernandes MD [address] [place] [address] [address], [place], [address], [facility] 7 11:14:55 Problem Notes None recorded. Procedures Surgical History Date Name Laterality Status Provider Name and Address Organization Details Recorded Time 7 Food Allergy Skin Test completed Taye Hernandes MD [address] [place] [address] [address], [place], [address], [facility] 07/01/2017 11:21:17 7 LEEP completed Taye Hernandes MD [address] [place] [address] [address], [place], [address], [facility] 07/01/2017 10:05:11 5 Trial Manager Surgery completed Taye Hernandes MD [address], [place], [address], [facility] 07/01/2017 10:05:26 3 Trial Manager Surgery completed Taye Hernandes MD [address], [place], [address], [facility] 07/01/2017 10:05:39 1 Other completed Taye Hernandes MD [address], [place], [address], [facility] 07/01/2017 10:05:58 Imaging Results None recorded. Procedure Notes None recorded. Medical Equipment None Reported. Allergies Allergen ID Allergen Name Allergen Category Reaction Reaction Severity Criticality Documentation Date Start Date Code Code System Note Provider Name and Address Organization Details Recorded Time 7380 codeine medicatio n Not available Not available Not available 07/01/2017 2670 RxNorm Taye Hernandes MD [address], [place], [address], [facility] 7 10:14:10 7381 Substance with sulfonami de structure and antibacte rial mechanism of action (substanc e) medicatio n Not available Not available Not available 07/01/2017 39984 8003 SNOMED Taye Hernandes MD [address],[facility] [address], [place], [address], [facility] 7 10:14:17 Medications [...] Pulse oximetry Respiratory rate Body temperature Systolic And Diastolic Provider Name and Address Organization Details Last Updated DateTime 7 171.45 cm 31.2 kg/m2 77210.6 6 g 74 /min 99 % 99 % 16 /min 98.4 [degF] 124/76 mm[Hg] Taye Hernandes MD [address], [place], [address], [facility] 7 11:16:48 Date Recorded Body height Body mass index (BMI) Body weight Respiratory rate Heart rate Body temperature Oxygen saturation Oxygen saturation in Arterial blood by Pulse oximetry Systolic And Diastolic Provider Name and Address Organization Details Last Updated DateTime 7 171.45 cm 31.2 kg/m2 09937.6 6 g 16 /min 76 /min 98.6 [degF] 99 % 99 % 120/76 mm[Hg] Taye Hernandes MD [address], [place], [address] 7 10:19:51 [...] Information not available 07/01/2017 Years Living In [place] Since 2001 Information not available 07/01/2017 Marital Status Informatio n not available 07/01/2017 What Was The Date Of Your Most Recent Tobacco Screening? 07/01/2017 [id number] Information not available 06/04/2020 How Much Tobacco Do You Smoke? 1 PPW [id number] Information not available 06/04/2020 Sex: Unknown Functional Status Question Answer Note LastModified by Organ[employer]at [employer] Details LastModified Time What is your level of alcohol consumption? 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 [id number] Information not available 06/04/2020 Mental Status None [...] SNOMED-CT Code Diagnosis ICD10 Code Diagnosis Note [id number] Taye Hernandes MD Main Office [address] [place] [address] 07/01/2017 09:50:42 07/01/2017 11:05:03 Fatigue 17797833 R53.83 Perennial allergic rhinitis 058784623 J30.89 Allergy to food 64521061 1 Z91.018 Chronic urticaria 915011 05 L50.8 63246 Taye Hernandes MD Main Office [address] [facility] [place] [address] 07/15/2017 10:04:25 07/15/2017 10:36:27 Allergy to food 964554465 Z91.018 Perennial allergic rhinitis 256810365 J30.89 Chronic urticaria 957443 05 L50.8 Health Concerns Section Related Observation LastModified by Organization Detai ls LastModified Time None Recorded Concern Status LastModified by Organization Details LastModified Time None Recorded Advance Directives Directive None Recorded Payers Insurance Date Sequence Insurance Name Policy Number Policy Fernández Covered Member ID Fernández Member ID Guarantor Name 09/06/2017 1 [employer] (POS) [id number] Cande A Ashline [id number] [facility] Notes Date Note Type Note Provider Name and Address Organization Details Recorded Time 07/01/2017 text/html Patient describe s longstanding history of nasal-ocular allergy symptoms initially treated during childhood in [place] with eventual improvement after move to [place] 15 years ago over which time she [...] possibly triggering symptoms. Taye Hernandes MD [address], [place], [address], [facility] - [facility] 07/03/2017 18:05:49 07/15/2017 text/html Here to review l ab results.Implementin g dietary avoidance measures. Patient plans to review buspar with her doctor since recalls it was initiated around time that hives first appeared. Not yet started ranitidine but feels that combination of Zyrtec and Gillian helping. Taye Hernandes MD [address],[facility] [address], [place], [address], [facility] - [facility] 07/15/2017 11:18:30 OBGyn Episode No OBEpisode recorded.
== END 2025-02-16 07:21 | disposition home or self-care (01) ==
LOC: HO.MAMMO 07:20
PROVIDERS: PCP Nurse Practitioner Family; Visit Provider Nurse Practitioner Family
DX: Z12.31 Encounter for screening mammogram for malignant neoplasm of breast (principal)
CPT/HCPCS: 77063; 77067

== ENCOUNTER → 2025-02-16 07:30 | Outpatient (BNV) | payer OTHER, SELFPAY | PROVIDERS: PCP Nurse Practitioner Family; Visit Provider Internal Medicine | DX: Z12.31 Encounter for screening mammogram for malignant neoplasm of breast (principal) | CPT/HCPCS: 77063; 77067 ==

== ENCOUNTER 2025-02-26 08:00 | Outpatient (AMB) | payer OTHER, SELFPAY ==
[2025-02-26 08:02] VITALS: BP 122/82; PULSE 70; RESP 16; TEMP 36.6; O2SAT 97; BMI 31.4
--- NOTE | 2025-02-26 08:02 | MHC.PC.OV ---
Vital Signs 02/26/25 08:02 Height 5 ft 7 in Weight 200 lb 6 oz BMI 31.4 BP 122/82 Blood Pressure Location Lt brachial Position Sitting Respiration 16 Pulse 70 Pulse Source Pulse Oximeter Temp 98 F Temp Source Oral Pulse Oximetry (%) 97 Oxygen Delivery Method Room Air Intake Visit Reasons: Annual PE Intake Note: [place] [facility] [place] Required: No Accompanied by: Self / Same As Patient Allergies codeine (CODEINE) Allergy (Unknown, Verified 02/26/25 08:48) HIVES ibuprofen Allergy (Unknown, Verified 02/26/25 08:48) Unknown Sulfa (Sulfonamide Antibiotics) (SULFA (SULFONAMIDE ANTIBIOTICS)) Allergy (Unknown, Verified 02/26/25 08:48) HIVES Medication List - Last Reconciled 02/26/25 by Gal Valenzuela, [facility]- clonazepam 0.5 mg PO DAILY PRN dextroamphetamine-amphetamine 10 mg (Adderall) 10 mg PO BID epinephrine (EpiPen 2-Orion) 0.3 mg (0.3 mL) IM Q4H PRN estradiol 1 patch transdermal Q3D fluoxetine 60 mg PO DAILY hydrocortisone 2.5% 1 appl topical DAILY PRN 14 days loratadine (Claritin) 10 mg PO DAILY mupirocin 2% (Centany) 1 appl topical BID trazodone 50 mg PO BEDTIME PRN Tobacco use date assessed: 02/26/25 Dental Screening Dental Screen Date: 02/26/25 Did you have a dental visit in the last 12 months?: Yes Did you have a dental problem in the last 6 months where you did not have access to dental care?: No Was dental information given to patient?: Patient has dentist HPI Annual PE HPI Details History of Present Illness The patient is a 44-year-old female presenting for a physical exam. She has a history of anxiety and depression, exacerbated by job-related stress, particularly due to a brash boss. She denies suicidal or homicidal ideation and is under psychiatric care, though she does not have or want a therapist. The patient reports a skin lesion on her right upper thigh, which is tender and pruritic. The lesion is quarter-sized, erythematous, slightly raised, with darker erythema, likely from itching or rubbing. 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 She reports generalized abdominal pain and has a history of constipation. Health Maintenance - Mammogram completed last week, awaiting results - Referral for colon cancer screening to be placed Social History - Employment: Reports job-related stress due to a brash boss Review of Systems - Psychiatric: Reports anxiety and depression; denies suicidal or homicidal ideation - Dermatological: Reports pruritic and tender skin lesion on right upper thigh - Gastrointestinal: Reports generalized abdominal pain and history of constipation - denies any cp, sob, n/v, urinary issues, blood in stool. Physical Exam General: Cooperative, healthy appearing, comfortable, no acute distress and well developed, obese Orientation: Patient oriented x3 Limitations: No limitations Head: Normal to inspection Ears: Hearing grossly normal bilaterally Nose: Normal external nose present Face and sinus: Normal facial exam Eyes: Appearance normal, both eyes and all related structures, slightly teary-eyed Neck: Normal visual inspection and Yes full ROM Respiratory: Normal respiratory effort and able to speak in complete sentences. Clear to auscultation bilaterally Cardiovascular: Regular rate and rhythm. Normal S1 and S2 GI: Generalized abdominal pain. Normal to inspection. Soft to palpation and nontender Skin: Lesion on the right upper thigh region, slightly tender to touch, more itchy, approximately quarter-sized erythematous lesion, slightly raised with darker erythema to most of the surface, sometimes bleeds Neuro: Patient oriented x3 Extremities: Normal to inspection Results - Screening Tests: Mammogram completed, awaiting results Plan The patient will continue psychiatric care for anxiety and depression, with no current need for a therapist (pt declined). A referral for colon cancer screening will be arranged, and mammogram results are pending. The skin lesion will be observed for changes, and the patient should report any new developments. Discussion Notes I discussed with the patient the importance of continuing her psychiatric care and the option of therapy, which she declined. We talked about the need for regular screenings, including the colon cancer screening referral and awaiting mammogram results. I advised monitoring the skin lesion for any changes and to report any new symptoms. Patient Instructions - Continue seeing your psychiatrist for anxiety and depression management. - Await results from your recent mammogram. - Follow up on the referral for colon cancer screening. - Monitor the skin lesion for any changes and report them. [facility] Medical History (Updated 02/26/25 @ 08:46 by [facility]) Obesity Lumbar facet joint syndrome Anxiety Depression Endometriosis Screening for breast cancer Surgical History H/O: hysterectomy History of excision of lesion (02/25/23) History of cholecystectomy History of tubal ligation H/O LEEP S/P removal of right ovary S/P anal fissurectomy Family History Maternal Aunt History of breast cancer Family/Other Ovarian cancer Sister Hodgkin lymphoma Social History Household Members: Family Housing: House Alcohol intake: current Alcohol intake frequency: holidays/special occasions only Patient Tobacco Use Status: Former Tobacco user e-Cigarette/Vaping Use: Never Used Second Hand Smoke Exposure: No Current occupational status: employed 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 1. Little interest or pleasure in doing things: several days 2. Feeling down, depressed, or hopeless: several days 3. Trouble falling or staying asleep, or sleeping too much: more than half the days 4. Feeling tired or having little energy: more than half the days 5. Poor appetite or overeating: several days 6. Feeling bad about yourself - or that you are a failure or have let yourself or your family down: several days 7. Trouble concentrating on things, such as reading the newspaper or watching television: more than half the days 8. Moving or speaking so slowly that other people could have noticed. Or the opposite - being so fidgety or restless that you have been moving around a lot more than usual: several days 9. Thoughts that you would be better off or of hurting yourself in some way: not at all Total score: 11 Depression Screening Interpretation: Positive (denies any HI or SI) Depression Screening Follow-up: Existing condition and In treatment Depression Screening Done: Yes [address]0472 - PHQ-9 Billing: Yes Source: Developed by Drs. Eric Browne, Jose Bro and colleagues, with an educational martha from [employer]. Thrive Questionnaire Date Thrive assessed: 09/11/24 I am a: Patient What is your living situation today?: I have a steady place to live Within the past 12 months, did the food you bought not last and you didn't have the money to get more?: Never true Within the past 12 months, did you worry whether your food would run out before you got money to buy more?: Never true Do you have trouble paying for medicines?: No Do you have trouble getting transportation to medical appointments?: No Do you have trouble paying your heating and electricity bill?: No Do you have trouble taking care of your child, family member or friend?: Yes Do you have trouble with day-to-day activities such as bathing, preparing meals, shopping, managing finances, etc.?: No Are you currently unemployed and looking for a job?: No Are you interested in more education?: No Please select the resources that you would like help with: None Currently or been in a relationship where the following occur: No concerns reported THRIVE Score: 0 MONICA-7 AMB Questionnaire MONICA-7 Feeling nervous, anxious, or on edge: 3 = Nearly every day Not being able to stop or control worryin = Several days Worrying too much about different things: 1 = Several days Trouble relaxin = Several days Being so restless that it is hard to sit still: 1 = Several days Becoming easily annoyed or irritable: 0 = Not at all Feeling afraid as if something awful might happen: 0 = Not at all Total MONICA-7 score (0-4 normal; 5-9 mild; 10-14 moderate; 15-21 severe): 7 Source: Developed by Drs. Eric Browne, Jose Bro and colleagues, with an educational martha from [employer]. MONICA-7 Assessment Billing MONICA-7 Assessment Tool: MONICA-7 Assessment 45206 Physical exam (Primary Care) Vital Signs: Last Vital Signs Temp 98 F 02/26/25 08:02 Pulse 70 02/26/25 08:02 Resp 16 02/26/25 08:02 BP 122/82 02/26/25 08:02 Pulse Ox 97 02/26/25 08:02 Oxygen Delivery Method Room Air 02/26/25 08:02 BMI result Body Mass Index 31.4 Tobacco/Smoking Status: Tobacco use Status Tobacco use date assessed 02/26/25 02/26/25 08:06 Patient Tobacco Use Status Former Tobacco user 02/26/25 08:06 e-Cigarette/Vaping Use Never Used 02/26/25 08:06 PHQ-9: PHQ-9 Score PHQ-9: Total score 11 02/26/25 08:06 Depression Screening Interpretation: Positive (denies any HI or SI) Depression Screening Follow-up: Existing condition and In treatment Thrive Assessment: Date of Thrive Assessment Date Thrive assessed 09/11/24 02/26/25 08:06 Currently or been in a relationship where the following occur: No concerns reported Coding Level of Care Code Est Pt Level 3 (49514) Est Pt Prev Care 40-64y([address]) Diagnoses Screening for colon cancer Z12.11 Depression F32.9 Anxiety F41.9 Dermatitis L30.9 Encounter for routine adult physical exam with abnormal findings Z00.01 Additional Codes MONICA-7 Assessment Billing - MONICA-7 Assessment Tool: MONICA-7 Assessment 97095 ([id number]) PHQ-9 - 32707 - PHQ-9 Billing: Yes ([id number]) Assessment & Plan Assessment & Plan (1) Screening for colon cancer: Code(s): Z12.11 - Encounter for screening for malignant neoplasm of colon Category: Medical (2) Depression: Code(s): F32.9 - Major depressive disorder, single episode, unspecified Category: Medical (3) Anxiety: Code(s): F41.9 - Anxiety disorder, unspecified Category: Medical (4) Dermatitis: Code(s): L30.9 - Dermatitis, unspecified Category: Medical (5) Encounter for routine adult physical exam with abnormal findings: Code(s): Z00.01 - Encounter for general adult medical examination with abnormal findings Category: Medical Plan . Orders: Orders Lipid Panel Today Z00.00 - Encounter for general adult medical examination without abnormal findings Complete Blood Count Auto Diff Today Z00.00 - Encounter for general adult medical examination without abnormal findings Comprehensive [place]. Panel Fast Today Z00.00 - Encounter for general adult medical examination without abnormal findings TSH reflex Free T4 Today Z00.00 - Encounter for general adult medical examination without abnormal findings UA CC w/rflx Micro + Cult Today Z00.00 - Encounter for general adult medical examination without abnormal findings Referrals Gastroenterology Referral Z12.11 - Encounter for screening for malignant neoplasm of colon Medications: New mupirocin 2% (Centany) 1 appl topical BID 22 grams 0RF hydrocortisone 2.5% 1 appl topical DAILY PRN 30 grams 0RF skin irritation 14 days
--- OUTSIDE RECORDS SUMMARY | 2025-02-26 08:04 | XMS_ITS | Data Portability ---
Author Organization [place] [facility], autoContract Address [address] [place] [address] Care Team Providers Care Business Information Manager Name Role Phone MICHELE ADDISON Referring Provider [...] mL injection, auto-injec tor 2016 017 INTERFACE [employer], [employer] (New Address), [address] [place] [address], [address] [place] [address], [id number], 7 10:49:45 ranitidine 150 mg tablet 2016 017 INTERFACE [facility][id number], [address] [place], [address], 7 11:15:16 Gillian Allergy 180 mg tablet 2016 017 kstabile [id number], [address] [place], [address], 7 11:15:14 Auvi-Q 0.3 mg/0.3 mL injection, auto-injec tor 2016 017 INTERFACE [employer], [employer] (New Address), [address] [place] [address], [address], [place], [place], [id number], 11:17:19 Patient TargetsNo targets recorded. Patient Instructions Encounter Date Encounter Id Patient Instructions Last Modified By Organization Details Last Modified Time 07/01/2017 [id number] chronic hives: care instructions sstabile Not available [...] (911/ER thereafter). Patient given order slip at [facility] for autoimmune studies including celiac, tryptase; latex IgE. Follow up in 1-2 weeks. [email or web address] Not available 07/03/2017 18:01:34 07/15/2017 [id number] Lab test results reviewed with the patient. [...] Equiv ocal >10 Posit vivi Not Available [facility] - [address], [address], 07/11/2017 06:12:27 07/01/20 17 07/01/2017 unexp chris d fatig ue profi le celikey ttg IgG <0.6 U/mL 0-7 normal <7 Negat vvii 7-10 Equiv ocal >10 Posit vivi Not Available [address], [address], 07/11/2017 06:12:27 07/01/20 17 07/01/2017 unexp chris d fatig ue profi le gliadin,deam idated peptide IgA 0.8 U/mL 0-7 normal <7 Negat vivi 7-10 Equiv ocal >10 Posit vivi Not Available [address], [address], 07/11/2017 06:12:27 07/01/20 17 07/01/2017 unexp chris d fatig ue profi le gliadin,deam idated peptide IgG <0.4 U/mL 0-7 normal <7 Negat vivi 7-10 Equiv ocal >10 Posit vivi Not Available [address], [address], 07/11/2017 06:12:27 07/01/20 17 07/01/2017 unexp chris d fatig ue profi le cyclic citrullinate d peptide IgG 0.8 U/mL 0-7 normal <7 Negat vivi 7-10 Equiv ocal >10 Posit vivi Not Available [facility] - [address], [address], 07/11/2017 06:12:27 07/01/20 17 07/01/2017 unexp chris d fatig ue profi le EMMANUEL screen([facility]) 0.2 ratio 0-0.7 normal <0.7 Negat vivi 0.7-1 .00 Equiv ocal >1.00 Posit vivi Not Available [facility] - [address], [address], 07/11/2017 06:12:27 07/01/20 17 07/01/2017 unexp chris d fatig ue profi le dsdna <0.5 IU/mL 0-10 normal <10 Negat vivi 10-15 Equiv ocal >15 Posit vivi Not Available [address], [address], 07/11/2017 06:12:27 07/01/20 17 07/01/2017 unexp chris d fatig ue profi le rheumatoid factor IgA 2.9 IU/mL 0-14 normal <14 Negat vivi 14-20 Equiv ocal >20 Posit vivi Not Available [address], [address], 07/11/2017 06:12:27 07/01/20 17 07/01/2017 unexp chris d fatig ue profi le rheumatoid factor IgM 0.5 U/mL 0-3.5 normal <3.5 Negat vivi 3.5-5 .0 Equiv ocal >5.0 Posit vivi Not Available [address], [address], 07/11/2017 06:12:27 07/01/20 17 07/01/2017 thyro id perox idase (tpo) Ab, serum thyroid peroxidase IgG <4 IU/mL 0-25 normal <25 Negat vivi 25-35 Equiv ocal >35 Posit vivi Not Available [place] [address] [place] [address], [address], 07/11/2017 06:12:27 07/01/20 17 07/01/2017 thyro globu robbie Ab, serum thyroglobuli n IgG <12 IU/mL 0-40 normal <40 Negat vivi 40-60 Equiv ocal >60 Posit vivi Not Available [facility] [place] [address] [place] [address], [address], 07/11/2017 06:12:28 07/01/20 17 07/01/2017 latex (H.br azili ensis ) latex (H.brazilien sis) <0.10 kU/L 0-0.10 normal Not Available [facility] [place] [address] [place] [address], [address], 07/11/2017 06:12:28 07/01/20 17 07/01/2017 trypt ase, [...] rmed at: [facility] [address] [place], [place] Not Available [facility] - [address], [address], 07/11/2017 06:12:28 Result Notes None recorded. Problems Name Problem SNOMED Code Status Onset Date Resolution Date Notes Provider Name and Address Organization Details Recorded Time Depressive disorder 95837088 Active Taye Hernandes MD [address] [place] [address] Rd[address], [place], [address], [facility] - [facility] 7 10:07:33 Diabetes mellitus 48722677 Active Taye Hernandes MD [address], [place], [address], [facility] 7 10:08:03 Polycystic ovaries Active Taye Hernandes MD [address] [place] [address] Rd[address], [place], [address], [facility] 7 11:12:08 Smoker 62840905 Active Taye Hernandes MD [address] [place] [address] Rd[address], [place], [address], [facility] 7 17:31:12 Perennial allergic conjunctivi tis 463711872 Active 1995 Taye Hernandes MD [address] [place] [address] Rd,[address], [place], [address], [facility] 7 11:10:05 Perennial allergic rhinitis 447253020 Active 1995 Taye Hernandes MD [address] [place] [address] Rd[address], [place], [address], [facility] 7 11:10:33 Allergy to food 448422507 Active 2009 peanuts have given hives, lip swelling Taye Hernandes MD [address] [place] [address] Rd[address], [place], [address], [facility] 7 11:14:55 Problem Notes None recorded. Procedures Surgical History Date Name Laterality Status Provider Name and Address Organization Details Recorded Time 7 Food Allergy Skin Test completed Taye Hernandes MD [address] [place] [address] Rd[address], [place], [address], [facility] 07/01/2017 11:21:17 7 LEEP completed Taye Hernandes MD [address] [place] [address] Rd[address], [place], [address], [facility] 07/01/2017 10:05:11 5 Software Client Architect Surgery completed Taye Hernandes MD [address], [place], [address], [facility] 07/01/2017 10:05:26 3 Software Client Architect Surgery completed Taye Hernandes MD [address], [place], [address], [facility] 07/01/2017 10:05:39 1 Other completed Taye Hernandes MD [address], [place], [address], [facility] 07/01/2017 10:05:58 Imaging Results None recorded. Procedure Notes None recorded. Medical Equipment None Reported. Allergies Allergen ID Allergen Name Allergen Category Reaction Reaction Severity Criticality Documentation Date Start Date Code Code System Note Provider Name and Address Organization Details Recorded Time 7380 codeine medicatio n Not available Not available Not available 07/01/2017 2670 RxNorm Taye Hernandes MD [address], [place], [address], [facility] 7 10:14:10 7381 Substance with sulfonami de structure and antibacte rial mechanism of action (substanc e) medicatio n Not available Not available Not available 07/01/2017 13935 8003 SNOMED Taye Hernandes MD [address],[facility] [address], [place], [address], [facility] 7 10:14:17 [...] Updated DateTime 7 171.45 cm 31.2 kg/m2 03489.6 6 g 74 /min 99 % 99 % 16 /min 98.4 [degF] 124/76 mm[Hg] Taye Hernandes MD [address], [place], [address], [facility] 7 11:16:48 Date Recorded Body height Body mass index (BMI) Body weight Respiratory rate Heart rate Body temperature Oxygen saturation Oxygen saturation in Arterial blood by Pulse oximetry Systolic And Diastolic Provider Name and Address Organization Details Last Updated DateTime 7 171.45 cm 31.2 kg/m2 01154.6 6 g 16 /min 76 /min 98.6 [degF] 99 % 99 % 120/76 mm[Hg] Taye Hernandes MD [address], [place], [address] 9[facility] 7 10:19:51 Social [...] Information not available 07/01/2017 Years Living In [place] Since 2001 Information not available 07/01/2017 Marital Status Informatio n not available 07/01/2017 What Was The Date Of Your Most Recent Tobacco Screening? 07/01/2017 [id number] Information not available 06/04/2020 How Much Tobacco Do You Smoke? 1 PPW [id number] Information not available 06/04/2020 Sex: Unknown Functional Status Question Answer Note LastModified by Organizat [employer] Details LastModified Time What is your level of alcohol consumption? 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 Family History Relationship [...] SNOMED-CT Code Diagnosis ICD10 Code Diagnosis Note [id number] Taye Hernandes MD Main Office [address] [place] [address] 07/01/2017 09:50:42 07/01/2017 11:05:03 Fatigue 36730566 R53.83 Perennial allergic rhinitis 067127342 J30.89 Allergy to food 76042619 1 Z91.018 Chronic urticaria 282152 05 L50.8 80928 Taye Hernandes MD Main Office [address] [place] [address] 07/15/2017 10:04:25 07/15/2017 10:36:27 Allergy to food 591260529 Z91.018 Perennial allergic rhinitis 825288029 J30.89 Chronic urticaria 919370 05 L50.8 Health Concerns Section Related Observation LastModified by Organization Detai ls LastModified Time None Recorded Concern Status LastModified by Organization Details LastModified Time None Recorded Advance Directives Directive None Recorded Payers Insurance Date Sequence Insurance Name Policy Number Policy Fernández Covered Member ID Fernández Member ID Guarantor Name 09/06/2017 1 [employer] (POS) [id number] Cande Galeana [id number] Cande Galeana OBGyn Episode No OBEpisode recorded.
== END 2025-02-26 09:15 | disposition home or self-care (01) ==
LOC: HO.HMCC 08:01
PROVIDERS: PCP Nurse Practitioner Family; Visit Provider Nurse Practitioner Family
DX: Z00.01 Encounter for general adult medical examination with abnormal findings (principal); F32.9 Major depressive disorder, single episode, unspecified; F41.9 Anxiety disorder, unspecified; L30.9 Dermatitis, unspecified; Z12.11 Encounter for screening for malignant neoplasm of colon

== ENCOUNTER 2025-02-26 08:00 | Outpatient (REF) | payer OTHER, SELFPAY ==
[2025-02-26 13:13] LABS: Appearance Urine Clear; Glucose Urine UA Negative (Negative); PH 6.5 (5.0-9.0); Specific Gravity - Urine 1.020 (1.005-1.025); UMIC TRIGGER UACC YES
[2025-02-26 13:22] LABS: MANUAL DIFF FLAG NO
[2025-02-26 13:26] LABS: Hematocrit 38.7 % (37.0-47.0); Hemoglobin 12.8 g/dl (12.0-16.0); Imm Gran Abs Auto 0.01 X10*3/uL (0.00-0.03); Imm Gran Pct Auto 0.2 % (0.0-0.4); Lymphocytes Absolute Auto 1.4 X10*3/uL (1.2-4.9); Mean Corpuscular HGB Conc 33.1 g/dl (31.0-35.0); Mean Corpuscular Hemoglobin 28.6 pg (27.0-33.0); Mean Corpuscular Volume 86.4 fL (80.0-98.0); NRBC Abs Auto 0.000 X10*3/uL (0.0-0.012); NRBC Pct Auto 0.0 /100WBC (0.0-0.2); Platelet Count 288 X10*3/uL (160-400); Red Blood Count 4.48 X10*6/uL (4.20-5.50); White Blood Count 6.1 X10*3/uL (4.8-10.8)
[2025-02-26 13:46] LABS: Alanine Aminotransferase 9 U/L (0-31); Albumin Level 4.3 g/dL (3.5-5.0); Alkaline Phosphatase 58 U/L (39-117); Anion Gap 9 (12-20); Aspartate Amino Transferase 18 U/L (5-31); Blood Urea Nitrogen 15 mg/dL (9-16); Calcium 9.0 mg/dL (8.4-10.2); Carbon Dioxide 29 mmol/L (22-29); Chloride 105 mmol/L (96-108); Cholesterol 185 mg/dL (<200); Estimated Glomerular Filt Rate > 60; HDL Cholesterol 76 mg/dL (>40); Potassium 4.0 mmol/L (3.3-5.1); Sodium 139 mmol/L (135-145); Total Protein 6.6 g/dL (6.5-8.0); Triglycerides 64 mg/dL (<150)
== END 2025-02-26 08:01 | disposition home or self-care (01) ==
LOC: HO.HMGCLDS 08:00
PROVIDERS: PCP Nurse Practitioner Family; Visit Provider Nurse Practitioner Family
DX: Z00.01 Encounter for general adult medical examination with abnormal findings (principal); F32.9 Major depressive disorder, single episode, unspecified; F41.9 Anxiety disorder, unspecified; L30.9 Dermatitis, unspecified; Z13.31 Encounter for screening for depression
CPT/HCPCS: 36415; 80053; 80061; 81001; 84443; 85025; 96127

== ENCOUNTER 2025-05-03 07:37 | Outpatient (AMB) | payer OTHER, SELFPAY ==
--- NOTE | 2025-05-03 07:37 | A.OFFVIS_ITS ---
Intake Visit Reasons: Follow up Intake Note: Patient is present for follow up Urology Medication: Antibiotic Allergy:SULFA Blood Thinner:NONE LAST PVR: 0ML'S Merchandise Marker Required: No Accompanied by: Self / Same As Patient Allergies codeine (CODEINE) Allergy (Unknown, Verified 05/03/25 07:38) HIVES ibuprofen Allergy (Unknown, Verified 05/03/25 07:38) Unknown Sulfa (Sulfonamide Antibiotics) (SULFA (SULFONAMIDE ANTIBIOTICS)) Allergy (Unknown, Verified 05/03/25 07:38) HIVES Medication List - Last Reconciled 05/03/25 by Marija Vera MD clonazepam 0.5 mg PO DAILY PRN dextroamphetamine-amphetamine 10 mg (Adderall) 10 mg PO BID epinephrine (EpiPen 2-Orion) 0.3 mg (0.3 mL) IM Q4H PRN estradiol 1 patch transdermal Q3D hydrocortisone 2.5% 1 appl topical DAILY PRN 14 days loratadine (Claritin) 10 mg PO DAILY trazodone 50 mg PO BEDTIME PRN vilazodone 20 mg PO DAILY HPI Comments Details: 05/03/25--Antonietta is a 44-year-old female presenting for telehealth follow-up for persistent microscopic hematuria. History of Present Illness The patient is a 44-year-old female presenting with hematuria. The hematuria was first detected in her early 20s and is microscopic, she has not seen visible blood. There is a family history of similar symptoms, as her mother and aunt also experience hematuria. The patient has a history of endometriosis. She underwent a full hysterectomy in August 2023, which included the removal of her left ovary, as the right ovary was already absent. Post-surgery, she reports significant relief from pain and describes her condition as greatly improved. The patient is prone to urinary tract infections, particularly when exposed to certain conditions such as swimming in pools, post sexual intercourse or during periods of stress. She is currently on an estrogen patch following her hysterectomy. And doing Results - CAT scan of the abdomen and pelvis in November,: Normal findings, including kidneys the provider day Plan 1. Hematuria - Schedule cystoscopy to further evaluate the cause of hematuria. - Discussed the procedure, including preparation and what to expect during the cystoscopy. 2. Endometriosis - Patient underwent a full hysterectomy in August 2023, resulting in significant pain relief. 3. Urinary Tract Infection Susceptibility - Discussed patient's susceptibility to UTIs, will continue to monitor Review of chart: Cande is a pleasant female. She is a patient of Dr. Zavala. She seen for the following urologic conditions - microscopic hematuria - recurrent UTI Three-month follow-up nurse-practitioner after CT scan Microscopic hematuria Longstanding Runs in her family 20 year smoking history 3 cigarettes per day equivalent to 3 year pack per day history No workplace exposure Prior evaluation age 21 with Urology in [place] Has upcoming CT scan Recurrent UTI Proximally 2 times per year Suggest vitamin-C 500 mg daily PFSH Medical History Obesity Lumbar facet joint syndrome Anxiety Depression Endometriosis Screening for breast cancer Surgical History H/O: hysterectomy History of excision of lesion (02/25/23) History of cholecystectomy History of tubal ligation H/O LEEP S/P removal of right ovary S/P anal fissurectomy Family History Maternal Aunt History of breast cancer Family/Other Ovarian cancer Sister Hodgkin lymphoma Social History Household Members: Family Housing: House Alcohol intake: current Alcohol intake frequency: holidays/special occasions only Patient Tobacco Use Status: Former Tobacco user e-Cigarette/Vaping Use: Never Used Second Hand Smoke Exposure: No Current occupational status: employed 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 Current occupational exposures/hazards: No Sexual orientation: Straight/Heterosexual Gender identity: Female Cognitive needs: No Hearing needs: No Vision needs: No Female Reproductive History Menstrual Age of Menarche: 10 Review of Systems Const All systems reviewed & are unremarkable except as noted in HPI and below Reports no additional complaints Eyes Reports no additional complaints ENT Reports no additional complaints Card Reports no additional complaints Resp Reports no additional complaints GI Reports no additional complaints Reports as per HPI Musc Reports no additional complaints Skin/Breast Reports system reviewed and no additional complaints, except as documented Neuro Reports no additional complaints Psych Reports no additional complaints Endo Reports no additional complaints Carlos/Lymph Reports no additional complaints Aller/Immun Reports no additional complaints Telehealth Telehealth Telehealth Platform: [employer] Location of provider rendering services: practice address Location of patient: address on file Patient Identification confirmed using: Name, : Yes Telehealth method: video Patient verbally consented to treatment: Yes Patient verbally consented to billing insurance company: Yes Patient informed of any privacy concerns related to visit: Yes Results Reviewed Results Reviewed: Date of Service: 12/29/24 EXAMINATION: CT ABDOMEN PELVIS UROGRAPHY WITHOUT THEN WITH IV CONTRAST HISTORY: R31.9 - Hematuria, unspecified COMPARISON: There are no prior studies available for comparison. TECHNIQUE: CT scan of the abdomen and pelvis was performed before and after the intravenous administration of 85 mL Omnipaque 350. Postcontrast images were obtained using a split bolus technique. Coronal and sagittal reformatted images were generated and reviewed. Oral contrast material was not administered per department protocol. This CT exam was performed with one or more of the following dose reduction techniques: automated exposure control, adjustment of the mA and/or kV according to patient size, use of iterative reconstruction technique. DLP: 924 mGy-cm ABDOMEN: LOWER CHEST: The visualized lung bases are clear. There is no pleural effusion. CARDIOVASCULATURE: The heart is normal in size. There is no pericardial effusion. LIVER: The liver is normal in size and contour. There is a 7 mm probable cyst in the inferior aspect of the right lobe. A smaller probable cyst is noted in the more superior aspect of the right lobe. The hepatic and portal veins are patent. GALLBLADDER / BILE DUCTS: The gallbladder is surgically absent. There is no intra or extrahepatic biliary ductal dilatation. SPLEEN: The spleen is normal in size. No focal splenic lesion is identified. PANCREAS: The pancreas is unremarkable in appearance. ADRENAL GLANDS: Within normal limits. KIDNEYS/RETROPERITONEUM: No renal or ureteral calculi are identified. There is no hydronephrosis or hydroureter. No renal masses are identified. The intrarenal collecting systems are unremarkable in appearance. No ureteral filling defects are identified. LYMPH NODES: No abdominal or pelvic lymphadenopathy. VASCULATURE: The abdominal aorta is normal in caliber. MESENTERY/PERITONEUM: No free fluid. No masses. There is no free intraperitoneal gas. STOMACH: The stomach is collapsed, limiting evaluation. SMALL BOWEL: The small bowel is normal in caliber. COLON: There is a moderate amount of stool throughout the colon. APPENDIX: Normal. URINARY BLADDER/PELVIC ORGANS: The urinary bladder is unremarkable. The patient is status post hysterectomy. BONES / SOFT TISSUES: No suspicious bony or soft tissue abnormalities. IMPRESSION: Unremarkable CT urogram. Assessment & Plan Assessment & Plan (1) Anxiety: Code(s): F41.9 - Anxiety disorder, unspecified Category: Medical (2) Hematuria: Code(s): R31.9 - Hematuria, unspecified Category: Medical Plan Plan 1. Hematuria - Schedule cystoscopy to further evaluate the cause of hematuria. - Discussed the procedure, including preparation and what to expect during the cystoscopy. 2. Endometriosis - Patient underwent a full hysterectomy in August 2023, resulting in significant pain relief. 3. Urinary Tract Infection Susceptibility - Discussed patient's susceptibility to UTIs, will continue to monitor Patient Instructions: The patient had an opportunity to ask questions regarding treatment plan. The patient expressed understanding and agreement with the above treatment plan. The patient is aware they should contact our office by phone for worsening of their current condition or the appearance of new symptoms. Compliance is encouraged with any medications and followup testing that is ordered. It is a privilege to be allowed the opportunity to participate in the urologic care of your patient. If you have any questions or concerns regarding treatment for the above conditions please do not hesitate to contact me. The office telephone contact is [phone]. This note is constructed in part using voice recognition software. While every effort has been made to ensure accuracy ticket chopper assembler errors may have been included. Yours sincerely, Marija Vera MD Scribe Plan - Not visible on output: Patient was informed and verbally consented to the use of an ambient scribe for clinic note documentation during this visit. Coding Level of Care Code Tele Est Pt Level 4 (04367) Diagnoses Anxiety F41.9 Hematuria R31.9
== END 2025-05-03 09:04 | disposition home or self-care (01) ==
LOC: HO.HUSH 07:37
PROVIDERS: PCP Nurse Practitioner Family; Visit Provider Urology
DX: F41.9 Anxiety disorder, unspecified (principal); R31.9 Hematuria, unspecified
CPT/HCPCS: 98006